=== PATIENT | female | born 1960 | race Caucasian/White ===

== ENCOUNTER 2018-01-15 06:39 | Inpatient (IN) | payer MEDICARE, MEDICAID ==
[~2018-01-15 06:39] MED LIST: Bupivacaine 0.5%/EPINEPHrine 1:200,000 50 ML MDV ONE; Meropenem 500 MG SDV ONE
[2018-01-15] MEDS ORDERED: Celecoxib 200 MG Cap PO ONE (07:00)
[2018-01-15] MEDS ORDERED: Gabapentin 300 MG Cap PO ONE (07:00)
[2018-01-15] MEDS ORDERED: Acetaminophen 500 MG Tab PO ONE (07:00)
[2018-01-15] MEDS ORDERED: Scopolamine 1.5 MG Transdermal Patch TRDERM SCH (07:00)
[2018-01-15] MEDS ORDERED: Glycopyrrolate 0.2 MG/ML 5 ML MDV ONE (07:26)
[2018-01-15] MEDS ORDERED: fentaNYL 250 MCG/5 ML SDV ONE (07:26)
[2018-01-15] MEDS ORDERED: Succinylcholine 200 MG/10 ML MDV ONE (07:26)
[2018-01-15] MEDS ORDERED: Ondansetron 4 MG/2 ML SDV ONE (07:26)
[2018-01-15] MEDS ORDERED: Neostigmine Methylsulfate 1 MG/ML 5 ML Syringe ONE (07:26)
[2018-01-15] MEDS ORDERED: Dexamethasone 4 MG/ML SDV ONE (07:26)
[2018-01-15] MEDS ORDERED: Propofol 200 MG/20 ML SDV ONE (07:26)
[2018-01-15] MEDS ORDERED: Rocuronium 50 MG/5 ML Vial ONE ×2 (07:26→11:09)
[2018-01-15] MEDS ORDERED: Dextrose 5%-Lactated Ringers 1,000 ML IV SCH (07:30)
[2018-01-15] MEDS ORDERED: Albuterol/Ipratropium 3.0-0.5 MG/3 ML Neb Soln NEB ONE (08:00)
[2018-01-15] MEDS ORDERED: Lidocaine 0.4%/D5W 2 GM/500 ML BAG IV SCH (08:30)
[2018-01-15] MEDS ORDERED: Lidocaine 2% 100 MG/5 ML Syringe IVPUSH ONE (08:30)
[2018-01-15] MEDS ORDERED: Ketamine 500 MG/5 ML MDV IV SCH (08:30)
[2018-01-15] MEDS ORDERED: cefOXitin 2 GM in Sodium Chloride 0.9% 50 ML IV ONE (08:30)
[2018-01-15] MEDS ORDERED: Ropivacaine 58 ML, Dexamethasone 8 MG, EPINEPHrine 0.4 MG, Sodium Chloride 0.9% 19.6 ML NERVRT SCH ×4 (09:00)
[2018-01-15] MEDS ORDERED: Naloxone 0.4 MG/ML SDV IVPUSH PRN (09:01)
[2018-01-15] MEDS ORDERED: Naloxone 0.4 MG/ML SDV IV PRN (09:03)
[2018-01-15] MEDS: HYDROmorphone/Normal Saline 15 MG/30 ML PCA IV PRN (09:43)
[2018-01-15] MEDS ORDERED: Hydrocortisone Sodium Succinate 100 MG/2 ML SDV ONE (10:06)
[2018-01-15] MEDS ORDERED: Lactated Ringers 1,000 ML ONE (10:07)
[2018-01-15] MEDS ORDERED: Linezolid 200 MG/100 ML Bag IRR ONE (10:50)
--- NOTE | 2018-01-15 12:45 | CR ---
CHEST: Portable CLINICAL HISTORY:Catheter placement COMPARISON:None FINDINGS: Patient has a left subclavian catheter. Tip is in the superior vena cava. Pulmonary vascul ar is mildly cephalized. There is no infiltrate or edema IMPRESSION: Left subclavian catheter appears in good position Mild pulmonary vascular congestion may represent pulmonary venous hypertension
[2018-01-15] MEDS: Dextrose 5%-Lactated Ringers 1,000 ML IV SCH ×2 (13:58→21:27)
[2018-01-15] MEDS: Albuterol/Ipratropium 3.0-0.5 MG/3 ML Neb Soln INH SCH ×2 (14:59→21:20)
[2018-01-15] MEDS: cefOXitin 2 GM in Sodium Chloride 0.9% 50 ML IV SCH ×2 (16:57→21:20)
[2018-01-15] MEDS: Pantoprazole 40 MG Vial IV SCH (17:04)
[2018-01-15] MEDS: methylPREDNISolone Sodium Succinate 125 MG/2 ML SDV IVPUSH SCH (17:05)
[2018-01-15] MEDS ORDERED: Meperidine PF 100 MG/ML Syringe IM ONE (17:47)
[2018-01-15] MEDS ORDERED: hydrOXYzine HCl 100 MG/2 ML SDV IM ONE (17:48)
[2018-01-15] MEDS ORDERED: hydrOXYzine HCl 100 MG/2 ML SDV IM PRN (17:51)
[2018-01-15] MEDS: Budesonide 0.5 MG/2 ML Neb Susp INH SCH (20:39)
[2018-01-15] MEDS: Arformoterol 15 MCG/2 ML Neb Soln INH PRN (20:39)
[2018-01-15] MEDS ORDERED: Montelukast 10 MG Tab PO SCH (21:00)
[2018-01-15] MEDS: traZODone 50 MG Tab PO SCH (21:21)
[2018-01-15] MEDS: ClonazePAM 1 MG Tab PO SCH (21:53)
[2018-01-16] MEDS: Dextrose 5%-Lactated Ringers 1,000 ML IV SCH ×3 (02:41→17:48)
[2018-01-16] MEDS: methylPREDNISolone Sodium Succinate 125 MG/2 ML SDV IVPUSH SCH (05:09)
[2018-01-16] MEDS: cefOXitin 2 GM in Sodium Chloride 0.9% 50 ML IV SCH (05:09)
[2018-01-16] MEDS: Azithromycin 250 MG Tab PO SCH (05:10)
[2018-01-16] MEDS: Budesonide 0.5 MG/2 ML Neb Susp INH SCH ×2 (07:25→21:00)
[2018-01-16] MEDS: Albuterol/Ipratropium 3.0-0.5 MG/3 ML Neb Soln INH SCH ×4 (07:26→20:59)
[2018-01-16] MEDS: Fluticasone Propionate Nasal Spray 16 GM Bottle NASBOTH SCH (08:33)
[2018-01-16] MEDS: acetaZOLAMIDE 250 MG Tab PO SCH (08:33)
[2018-01-16] MEDS: Loratadine 10 MG Tab PO SCH (08:34)
[2018-01-16] MEDS: Furosemide 40 MG Tab PO SCH (08:34)
[2018-01-16] MEDS: buPROPion 150 MG Tab.ER PO SCH (08:34)
[2018-01-16] MEDS: Theophylline 100 MG Cap.ER PO SCH (08:34)
[2018-01-16] MEDS: ClonazePAM 1 MG Tab PO SCH ×2 (08:42→21:06)
[2018-01-16] MEDS ORDERED: Montelukast 10 MG Tab PO SCH (09:00)
[2018-01-16] MEDS: Montelukast 10 MG Tab PO SCH (09:03)
[2018-01-16] MEDS: Bisacodyl 5 MG Tab PO SCH ×2 (09:03→21:01)
[2018-01-16] MEDS: Docusate Sodium 100 MG Cap PO SCH ×2 (09:03→21:02)
[2018-01-16] MEDS: DALIRESP 500 MG PO SCH (10:46)
[2018-01-16] MEDS: HYDROmorphone/Normal Saline 15 MG/30 ML PCA IV PRN (12:39)
[2018-01-16] MEDS: Pantoprazole 40 MG Vial IV SCH (16:27)
[2018-01-16] MEDS: traZODone 50 MG Tab PO SCH (21:00)
[2018-01-16] MEDS: diphenhydrAMINE 25 MG Cap PO PRN (21:42)
[2018-01-17] MEDS: Dextrose 5%-Lactated Ringers 1,000 ML IV SCH (00:42)
[2018-01-17] MEDS: Azithromycin 250 MG Tab PO SCH (05:33)
[2018-01-17] MEDS: Albuterol/Ipratropium 3.0-0.5 MG/3 ML Neb Soln INH SCH ×4 (07:07→20:29)
[2018-01-17] MEDS: Budesonide 0.5 MG/2 ML Neb Susp INH SCH ×2 (07:07→20:29)
[2018-01-17] MEDS ORDERED: predniSONE 1 MG Tab PO ONE (08:00)
[2018-01-17] MEDS ORDERED: Dextrose 5%-Lactated Ringers 1,000 ML IV SCH (08:15)
[2018-01-17] MEDS: Fluticasone Propionate Nasal Spray 16 GM Bottle NASBOTH SCH (08:25)
[2018-01-17] MEDS: Bisacodyl 5 MG Tab PO SCH ×3 (08:25→20:34)
[2018-01-17] MEDS: Montelukast 10 MG Tab PO SCH (08:26)
[2018-01-17] MEDS: acetaZOLAMIDE 250 MG Tab PO SCH (08:26)
[2018-01-17] MEDS: Theophylline 100 MG Cap.ER PO SCH (08:26)
[2018-01-17] MEDS: Docusate Sodium 100 MG Cap PO SCH ×2 (08:26→20:33)
[2018-01-17] MEDS: buPROPion 150 MG Tab.ER PO SCH (08:26)
[2018-01-17] MEDS: Loratadine 10 MG Tab PO SCH (08:26)
[2018-01-17] MEDS: Furosemide 40 MG Tab PO SCH (08:27)
[2018-01-17] MEDS: Sodium Chloride 0.9% 10 ML Syringe FLUSH SCH ×2 (08:44→20:36)
[2018-01-17] MEDS ORDERED: Azithromycin 250 MG Tab PO SCH (09:00)
[2018-01-17] MEDS: ClonazePAM 1 MG Tab PO SCH ×2 (09:33→20:34)
[2018-01-17] MEDS: Acetaminophen/oxyCODONE 325-5 MG Tab PO PRN ×4 (09:33→20:34)
[2018-01-17] MEDS: DALIRESP 500 MG PO SCH (09:35)
[2018-01-17] MEDS: Pantoprazole 40 MG Delayed-Release Granules 1 Packet PO SCH (11:28)
--- NOTE | 2018-01-17 15:52 | PN ---
DATE OF SERVICE: 01/16/2018 The patient has been afebrile with stable vital signs. Her respiratory status is surprisingly quite good. We will continue with the CPAP when she is asleep, and the 4 L nasal cannula when awake. With that, she is having O2 sats in the mid 90s and looks quite comfortable. We will begin a clear liquid diet today, not pushing that, and some bowel stimulation. Back down on the IV rate. We will switch over to prednisone starting tomorrow to 4 mg and probably slipping her down to the usual 2.5 mg on Thursday. Richmond Russell MD /[id number]
[2018-01-17] MEDS: Ondansetron 4 MG/2 ML SDV IVPUSH PRN ×2 (16:07→20:33)
[2018-01-17] MEDS: traZODone 50 MG Tab PO SCH (20:34)
[2018-01-18] MEDS: Acetaminophen/oxyCODONE 325-5 MG Tab PO PRN ×4 (02:49→15:19)
[2018-01-18] MEDS: Azithromycin 250 MG Tab PO SCH (05:10)
[2018-01-18] MEDS: Budesonide 0.5 MG/2 ML Neb Susp INH SCH ×2 (07:06→21:47)
[2018-01-18] MEDS: Albuterol/Ipratropium 3.0-0.5 MG/3 ML Neb Soln INH SCH ×4 (07:06→21:47)
--- NOTE | 2018-01-18 08:23 | PN ---
DATE: 01/17/2018 The patient has been afebrile with stable vital signs. Oral intake was fair with clear liquids and go up to a step-3 diet today. Continue some ongoing bowel stimulation and maximize activity. Pulmonary status appears to be fairly good. We will get her back down to her baseline prednisone dose of 2.5 mg a day starting tomorrow and restart her standing Zithromax. Richmond Russell MD /[id number]
--- NOTE | 2018-01-18 08:35 | OR ---
DATE OF PROCEDURE: 01/15/2018 PREOPERATIVE DIAGNOSES: 1. Incarcerated incisional hernia. 2. Inadequate peripheral venous access. POSTOPERATIVE DIAGNOSES: 1. Inadequate peripheral venous access. 2. Incarcerated incisional hernia. 3. Focal areas of deserosalization of small bowel, status post lysis of adhesions. OPERATIVE PROCEDURES: 1. Insertion of left subclavian vein triple-lumen catheter (31188). 2. Exploratory laparotomy with;. a. Repair of incarcerated incisional hernia with mesh (34275, 84752). b. Repair of focal areas of deserosalization of the small bowel x2 (66415). c. Placement of Vicryl mesh to displace pelvic and abdominal brito from underlying viscera to limit recurrent adhesion formation (90312). ANESTHESIA: General. SOLID PLASTERER: Pippa Conn PA-C. INDICATIONS FOR PROCEDURE: The patient presents with increasingly symptomatic and enlarging incisional hernia, this was located in the mid-epigastrium. On CT scan, it contains transverse colon. This was associated with some degree of bowel obstruction at that level with the colon and small bowel proximal to this on serial CTs showing areas of distention consistent with a partial obstruction at that level. The plan is to proceed with an exploratory laparotomy and repair of the hernia with mesh. The patient is aware that if significant bowel resections are needed and/or closure of enterotomies that would contaminate the field, we might need to repair this hernia without mesh making her at a higher risk for recurrence. Otherwise, the potential risks of the procedure including bleeding, infection, injury to the underlying viscera, possible recurrence of the hernia over time as well as the possibility of cardiopulmonary, septic, or hemorrhagic complications leading to were discussed, and the patient wishes to proceed. One additional item in this patient is that she is a very difficult IV start and given this, the subclavian vein catheter will be placed after induction of anesthesia. She has had these in the past and additional potential risks of that including bleeding, infection, pneumohemothorax were likewise gone over, and the patient wishes to proceed. DETAILS OF PROCEDURE: The patient was taken to the operating room and after general endotracheal anesthesia was induced, bilateral midabdominal transversus abdominis plane blocks were placed using ultrasound guidance and injection of the standard solution bilaterally. A Posadas catheter was inserted, and the abdomen was then prepped and draped. A midline incision over the central abdomen excising a small amount of the overlying skin was then made and carried down through the skin and subcutaneous tissues. The tissue between the transverse colon and the skin surface was very minimal, perhaps as little as 2 or 3 mm in certain locations. The transverse colon was able to be dissected off the area of the herniation with a combination of blunt, sharp, and cautery dissections. Once the transverse colon was reduced, the patient was noted to have some very dense adhesions between the small bowel and the incision with the fascia, otherwise, had been intact just above that area. As these areas were taken down, two areas of deserosalization of small bowel were noted, but no overt enterotomy was encountered and both of these areas of deserosalization were then closed with transversely-oriented CHRISTIANO staple lines. This did not appear to significantly create any contamination of the wound. Further adhesions between the anterior abdominal wall and pelvic wall were then taken down such that there was a wide margin of abdominal wall for fixation of the mesh. Eventually, at this point, the area around the hernia was mapped out and a Ventrio ST hernia patch measuring 22 x 27 cm with an oval configuration was selected. This was then used to map out these stitches to initially suspend the mesh and 2-0 Vicryl sutures were then placed on circumference of the mesh on the polypropylene side at roughly 5 to 6 cm intervals. The mesh was then soaked in an antibiotic-containing saline solution and stab wounds were made at the appropriate locations on the abdominal wall. The upper half of the mesh was then initially placed using an endoscopic suture passer for pulling up the sutures. The patient was felt to be at high risk for significant problems with additional adhesions between the pelvic and anterior abdominal wall of the mesh and the underlying viscera. Given this, a 12-inch segment of Vicryl mesh was then placed underneath the mesh as well as extending down into the pelvis along the pelvic sidewalls, displacing the viscera from those surfaces. The remaining sutures to the mesh were then pulled through, thus fixing the mesh in a good position circumferentially. These were then tied. Then, on the under shelf of the mesh, the mesh was circumferentially fixed to the abdominal wall with titanium tacking screws as well. At that point, no further problems were noted. The midline fascia was approximated with #2 Vicryl stitch, subcutaneous tissue with 2 layers of 3-0 Vicryl stitch deep and jim for the skin. The skin puncture sites where the sutures had been pulled up were also closed with jim. The patient was taken to the recovery room in a satisfactory condition. There were no evident complications. Physician gallery assistant, Pippa Conn, played an essential role in assisting in this case, helping to position the patient, retract structures as needed, as well as suturing and cutting sutures when indicated. Her presence improved patient safety and decreased the operative time. Richmond Russell MD /[id number]
[2018-01-18] MEDS: Fluticasone Propionate Nasal Spray 16 GM Bottle NASBOTH SCH (08:36)
[2018-01-18] MEDS: Theophylline 100 MG Cap.ER PO SCH (08:37)
[2018-01-18] MEDS: acetaZOLAMIDE 250 MG Tab PO SCH (08:37)
[2018-01-18] MEDS: Docusate Sodium 100 MG Cap PO SCH ×2 (08:37→21:46)
[2018-01-18] MEDS: Loratadine 10 MG Tab PO SCH (08:37)
[2018-01-18] MEDS: Bisacodyl 5 MG Tab PO SCH ×2 (08:37→21:46)
[2018-01-18] MEDS: buPROPion 150 MG Tab.ER PO SCH (08:37)
[2018-01-18] MEDS: Furosemide 40 MG Tab PO SCH (08:37)
[2018-01-18] MEDS: DALIRESP 500 MG PO SCH (08:38)
[2018-01-18] MEDS: predniSONE 5 MG Tab PO SCH (08:38)
[2018-01-18] MEDS: Sodium Chloride 0.9% 10 ML Syringe FLUSH SCH (08:44)
[2018-01-18] MEDS: ClonazePAM 1 MG Tab PO SCH ×2 (08:44→21:47)
[2018-01-18] MEDS: Montelukast 10 MG Tab PO SCH (08:46)
[2018-01-18] MEDS: Arformoterol 15 MCG/2 ML Neb Soln INH PRN (08:47)
[2018-01-18] MEDS: Ondansetron 4 MG/2 ML SDV IVPUSH PRN (09:18)
--- NOTE | 2018-01-18 09:59 | PN ---
DATE OF SERVICE: 01/18/2018 SUBJECTIVE: Toya is postop day 3. Her pain has been controlled. She has been up ambulating. Vital signs stable. She has not had a bowel movement yet. Temperature max of 99.6. Oral intake 2440 and urine output 2600. REVIEW OF SYSTEMS: Remainder of review of systems negative for any pertinent positives and negatives. OBJECTIVE: GENERAL: Toya is a 57-year-old female. She is alert and orientated. VITAL SIGNS: TPR is 99.6, 106, 18; blood pressure 123/84; and O2 is 92% on 4 L of O2. HEENT: Negative. NECK: Supple. HEART: Regular rate and rhythm. LUNGS: Reveal decreased breath sounds bilaterally, which is normal for her. ABDOMEN: Dressings dry and intact. Abdominal binder is on. EXTREMITIES: Without peripheral edema. ASSESSMENT: 1. Insertion of left subclavian triple-lumen catheter. 2. Exploratory laparotomy with repair of incarcerated incisional hernia with mesh, repair of focal deserosalization of small bowel x2, and lysis of adhesions and placement of Vicryl mesh for an adequate peripheral vein access of incarcerated incisional hernia. Two focal areas of deserosalization of the small bowel, lysis of adhesions. Date of surgery 01/15/2018. PLAN: 1. Discontinue Tylenol to prevent too much on Tylenol while taking the Percocet for pain. 2. Prednisone 2.5 mg p.o. daily. 3. Continue bowel stimulation. Discontinue when patient is having bowel movement. Orders are already in chart. Good pulmonary toilet. We will evaluate p.r.n. or in a.m. Pippa Cnon PA-C /[id number]
[2018-01-18] MEDS: Pantoprazole 40 MG Delayed-Release Granules 1 Packet PO SCH (11:05)
[2018-01-18] MEDS ORDERED: Magnesium Citrate Solution 296 ML Bottle PO ONE (18:13)
[2018-01-18] MEDS: Acetaminophen/oxyCODONE 325-10 MG Tab PO PRN (19:22)
[2018-01-18] MEDS: traZODone 50 MG Tab PO SCH (21:47)
[2018-01-19] MEDS: Acetaminophen/oxyCODONE 325-10 MG Tab PO PRN ×3 (01:41→10:00)
[2018-01-19] MEDS: Azithromycin 250 MG Tab PO SCH (05:54)
[2018-01-19] MEDS: Albuterol/Ipratropium 3.0-0.5 MG/3 ML Neb Soln INH SCH ×4 (07:17→20:34)
[2018-01-19] MEDS: Budesonide 0.5 MG/2 ML Neb Susp INH SCH ×2 (07:18→20:34)
[2018-01-19] MEDS ORDERED: Magnesium Citrate Solution 296 ML Bottle PO ONE ×2 (09:30→16:00)
[2018-01-19] MEDS: Montelukast 10 MG Tab PO SCH (09:49)
[2018-01-19] MEDS: Fluticasone Propionate Nasal Spray 16 GM Bottle NASBOTH SCH (09:49)
[2018-01-19] MEDS: Bisacodyl 5 MG Tab PO SCH ×2 (09:49→20:34)
[2018-01-19] MEDS: buPROPion 150 MG Tab.ER PO SCH (09:49)
[2018-01-19] MEDS: Furosemide 40 MG Tab PO SCH (09:49)
[2018-01-19] MEDS: Theophylline 100 MG Cap.ER PO SCH (09:49)
[2018-01-19] MEDS: Docusate Sodium 100 MG Cap PO SCH ×2 (09:49→20:33)
[2018-01-19] MEDS: predniSONE 5 MG Tab PO SCH (09:50)
[2018-01-19] MEDS: Loratadine 10 MG Tab PO SCH (09:50)
[2018-01-19] MEDS: acetaZOLAMIDE 250 MG Tab PO SCH (09:50)
[2018-01-19] MEDS: DALIRESP 500 MG PO SCH (09:51)
[2018-01-19] MEDS: Sodium Chloride 0.9% 10 ML Syringe FLUSH SCH (09:51)
[2018-01-19] MEDS: ClonazePAM 1 MG Tab PO SCH ×2 (10:00→20:33)
[2018-01-19] MEDS: Pantoprazole 40 MG Delayed-Release Granules 1 Packet PO SCH (11:48)
[2018-01-19] MEDS: Roflumilast 500 MCG Tab PO SCH (11:48)
[2018-01-19] MEDS ORDERED: Furosemide 40 MG/4 ML VIAL IVPUSH ONE (16:20)
--- NOTE | 2018-01-19 16:24 | PCM.CONS ---
H&P History of Present Illness - General Date of Service: 01/19/18 Admit Problem/Dx: Admission Diagnosis/Problem Admission Diagnosis/Problem Hernia Source of Information: Patient, RN History Limitations: Reports: Altered Mental Status (lethargic) - History of Present Illness Initial Comments - Free Text/Narative: Toya was admitted 4 days ago for surgical repair of incarcerated hernia. I was asked to see her today regarding lethargy and worsening hypoxia by Dr. Russell. Nursing reports that she has been somnolent today and her oxygen saturations have slowly declined despite her usual dose of supplemental oxygen. They have also noticed some swelling involving face, arms and legs. Her main concern at this time is that she has worsening abdominal pain. She reports sharp diffuse abdominal pain that is worse with coughing and movement. Pain medications earlier in the day did help some. The pain is severe with coughing episodes. She does feel short of breath and that her breathing is labored. She does not report any chest pain at this time. She is lethargic during our discussion. She does not report any nausea. She has been using her home BiPAP throughout the afternoon. She is on home oxygen and uses between 3-4 L/m. She has been on 4 L of oxygen per minute during the hospital stay. Abdomen Pain Score (Numeric/FACES): 7 - Related Data Allergies/Adverse Reactions: Allergies Allergy/AdvReac Type Severity Reaction Status Date / Time morphine Allergy Rash Verified 01/15/18 07:47 Home Medications: Home Meds Albuterol/Ipratropium [DuoNeb 3.0-0.5 MG/3 ML] 1 inh INH QID PRN 01/12/18 [ History] Budesonide [Pulmicort] 0.5 mg IH BID 01/12/18 [History] Ergocalciferol (Vitamin D2) [Vitamin D2] 2,000 unit PO DAILY 01/12/18 [History] Fluticasone Propionate [Flonase] 2 inh INH DAILY 01/12/18 [History] Furosemide 40 mg PO DAILY 01/12/18 [History] Loratadine [Claritin] 10 mg PO DAILY 01/12/18 [History] Montelukast [Singulair] 10 mg PO DAILY 01/12/18 [History] Multivitamin with Minerals [Multiple Vitamin] 1 tab PO DAILY 01/12/18 [History] Roflumilast [Daliresp] 500 mcg PO DAILY 01/12/18 [History] Theophylline Anhydrous [Timothy-24] 200 mg PO DAILY 01/12/18 [History] buPROPion HCl [Wellbutrin SR] 150 mg PO DAILY 01/12/18 [History] diphenhydrAMINE [Benadryl] 50 mg PO BEDTIME 01/12/18 [History] traZODone HCl [Trazodone HCl] 300 mg PO BEDTIME 01/12/18 [History] Azithromycin [Zithromax] 250 mg PO DAILY 01/15/18 [History] Codeine/guaiFENesin [Robitussin AC] 1 tsp PO Q4H PRN 01/15/18 [History] Cyanocobalamin (Vitamin B12) [Vitamin B12] 1,000 mcg IM Q30D 01/15/18 [History] Fluconazole [Diflucan] 150 mg PO Q7D 01/15/18 [History] Folic Acid 1 mg PO DAILY 01/15/18 [History] Umeclidinium Inhalation Powder 1 puff INH DAILY 01/15/18 [History] acetaZOLAMIDE [Acetazolamide] 250 mg PO DAILY 01/15/18 [History] clonazePAM [Klonopin] 1 mg PO BID 01/15/18 [History] predniSONE [Prednisone] 2.5 mg PO DAILY 01/15/18 [History] Past Medical History HEENT History: Reports: Cataract, Other (See Below) Other HEENT History: wears glasses Respiratory History: Reports: Asthma, Bronchitis, Recurrent, COPD, Pneumonia, Recurrent, Sleep Apnea, Other (See Below) Other Respiratory History: home O2 at 4L Gastrointestinal History: Reports: Chronic Diarrhea, Colon Polyp, GERD Genitourinary History: Reports: UTI, Recurrent JAVA 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: Musculoskeletal History: Reports: Osteoarthritis Psychiatric History: Reports: Addiction, Anxiety, Depression, PTSD Endocrine/Metabolic History: Reports: Obesity/BMI 30+ Dermatologic History: Reports: Cellulitis - Infectious Disease History Infectious Disease History: Reports: Chicken Pox, MRSA - Past Surgical History HEENT Surgical History: Reports: Oral Surgery GI Surgical History: Reports: Appendectomy, Bariatric Procedure, Cholecystectomy , Colonoscopy, EGD, Hernia, Abdominal, Other (See Below) Other GI Surgeries/Procedures: spleenectomy Female Surgical History: Reports: Hysterectomy Musculoskeletal Surgical History: Reports: Hip Replacement, Knee Replacement Social & Family History - Family History Cardiac: Denies: CAD - Tobacco Use Smoking Status *Q: Former Smoker Years of Tobacco use: 40 Used Tobacco, but Quit: Yes Month/Year Tobacco Last Used: 2007 Second Hand Smoke Exposure: No - Caffeine Use Caffeine Use: Reports: Coffee - Alcohol Use Alcohol Use History: Yes Alcohol Use in Last Twelve Months: No - Recreational Drug Use Recreational Drug Use: Yes Drug Use in Last 12 Months: No Recreational Drug Type: Reports: Cocaine, Marijuana/Hashish, Methamphetamine Other Recreational Drug Type: nothing in last 12 years H&P Review of Systems - Review of Systems: Review Of Systems: See Below Free Text/Narrative: A complete 12 point review of systems was obtained. Pertinent positives and negatives are noted in the history of present illness. All other systems were reviewed and were negative except as noted. Exam - Exam Exam: See Below - Vital Signs Vital Signs: Last Vital Signs Temp 37.9 C 01/19/18 15:31 Pulse 125 H 01/19/18 15:31 Resp 18 01/19/18 14:06 BP 137/87 01/19/18 15:31 Pulse Ox 91 L 01/19/18 15:31 Weight: 113.58 kg - Exam Quality Assessment: Supplemental Oxygen, Central Line/PICC General: Alert, Cooperative, Mild Distress, Lethargic HEENT: Mucosa Moist & [place]. No: Scleral Icterus Neck: Supple, JVD. No: Lymphadenopathy, Thyromegaly Lungs: Crackles (throughout, more pronounced in the bases). No: Normal Respiratory Effort (increased work of breathing), Wheezing Cardiovascular: Regular Rhythm, Tachycardia. No: Systolic Murmur GI/Abdominal Exam: Soft, Distended. No: Abnormal Bowel Sounds (hypoactive) Extremities: Pedal Edema. No: Increased Warmth Skin: Warm, Dry Neuro Extensive - Mental Status: Alert, Nl Response to Commands Neuro Extensive - Motor, Sensory, Reflexes: CN II-XII Intact. No: Dysarthria, Abnormal Motor Psychiatric: Alert. No: Anxious - Patient Data Result Diagrams: 01/19/18 16:19 Imaging Impressions Last 24 hrs: chest x-ray - images personally reviewed - there is pulmonary vascular congestion but no impressive pulmonary edema. Heart size is normal. No obvious infiltrate. There is some atelectasis in the lower lungs bilaterally. Consult PN Assessment/Plan POD#: 4 Problem List Initiated/Reviewed/Updated: Yes My Orders Last 24 Hours: My Active Orders 01/19/18 16:19 BASIC METABOLIC PANEL,BMP [CHEM] Urgent BLOOD GAS ARTERIAL [BG] Urgent 01/19/18 16:20 Chest 1V Frontal [CR] Urgent 01/20/18 05:00 CBC W/O DIFF,HEMOGRAM [HEME] Timed (1) Plan: ASSESSMENT AND PLAN - Acute on chronic respiratory failure with hypoxia and hypercapnia - PCO2 is nearly 73 despite being on her home BiPAP throughout the afternoon. She does have a history of cor pulmonale and this seems to be the etiology for her worsening respiratory status. I don't see any evidence for infection at this time. He dose of furosemide has been ordered even prior to my evaluation. She does not have any chest pain at this time to suggest acute coronary syndrome. -Transfer to the intensive care unit for increasing noninvasive ventilatory support -f/u urine output after diuresis, reassess need for additional dosing -Pulse oximetry Severe oxygen dependent COPD - no wheezing at this time and I doubt that she has an acute exacerbation. Seems to be mostly a fluid issue. -Continue home management including nebulizers Incarcerated ventral hernia, status post surgical repair - pain control suboptimal this afternoon. She did have a bowel movement this afternoon. -Postoperative cares per surgical team Patient will be transferred to the intensive care unit to initiate the hospital BiPAP machine with increased pressures needed beyond her home machines settings. Gonzalo Carrillo M.D. Requesting Provider: Dr Russell Date Consult Requested: 01/19/18 Reason for Consult: lethargy, increasing hypoxia Patient History Reviewed: Yes Admission H&P Reviewed: Yes Notified Requestor: Yes Time Spent (in minutes): 60
[2018-01-19] MEDS: traZODone 50 MG Tab PO SCH (20:34)
[2018-01-20] MEDS: Ondansetron 4 MG/2 ML SDV IVPUSH PRN (02:06)
[2018-01-20] MEDS: Acetaminophen/oxyCODONE 325-10 MG Tab PO PRN ×3 (02:06→19:35)
[2018-01-20] MEDS: Azithromycin 250 MG Tab PO SCH (05:35)
[2018-01-20] MEDS ORDERED: Furosemide 40 MG/4 ML VIAL IVPUSH ONE (06:14)
[2018-01-20] MEDS: Albuterol/Ipratropium 3.0-0.5 MG/3 ML Neb Soln INH SCH ×4 (07:54→21:11)
[2018-01-20] MEDS: Budesonide 0.5 MG/2 ML Neb Susp INH SCH ×2 (07:54→21:11)
[2018-01-20] MEDS: buPROPion 150 MG Tab.ER PO SCH (08:37)
[2018-01-20] MEDS: Theophylline 100 MG Cap.ER PO SCH (08:37)
--- NOTE | 2018-01-20 08:37 | PCM.CONSN ---
- General Info Date of Service: 01/20/18 Functional Status: Reports: Pain Controlled - Review of Systems General: Reports: Weakness. Denies: Fever Pulmonary: Reports: Shortness of Breath Neurological: Reports: Confusion Systems Review Comment:: there were no acute events overnight following transfer to the intensive care unit. Repeat ABGs about 45 minutes after initiation of noninvasive ventilation with increased pressures revealed a decrease in her PCO2. The patient was able to tolerate her noninvasive ventilation overnight. This morning she reports that she feels better and is breathing easier. However, her PCO2 has risen back to greater than 70. Intake and output were balance yesterday. She has not had any fevers. Her white blood cell count is normal. She reports her abdominal pain is still moderately severe though she looks quite comfortable. She does have a loose cough. She did have bowel movement yesterday. - Patient Data Vitals - Most Recent: Last Vital Signs Temp 37.4 C 01/20/18 04:57 Pulse 90 01/20/18 07:54 Resp 20 01/20/18 04:57 BP 118/68 01/20/18 06:28 Pulse Ox 92 L 01/20/18 07:54 Weight - Most Recent: 123.74 kg I&O - Last 24 Hours: Intake & Output 01/19/18 01/20/18 01/20/18 22:59 06:59 14:59 Intake Total 1000 Output Total 525 600 Balance -525 1000 -600 Lab Results Last 24 Hours: Laboratory Results - last 24 hr 01/19/18 01/19/18 01/19/18 Range/Units 16:19 16:40 19:00 WBC (4.5-11.0) K/uL RBC (3.30-5.50) M/uL Hgb (12.0-15.0) g/dL Hct (36.0-48.0) % MCV (80-98) fL MCH (27-31) pg MCHC (32-36) % Plt Count (150-400) K/uL Puncture Site Left radial Lt radial ABG pH 7.326 L 7.375 (7.350-7.450) ABG pCO2 72.7 H* 64.6 H (35.0-42.0) mmHg ABG pO2 66.0 L 50.9 L (75.0-100.0) mmHg ABG HCO3 36.9 H 36.9 H (22.0-26.0) mmol/L ABG Total CO2 33.7 H 33.7 H (21.0-25.0) mmol/L ABG O2 Saturation 90.2 L 83.2 L (95.0-98.0) % ABG O2 Content 15.9 13.7 L (15.0-23.0) %vol ABG Base Excess 8.6 9.9 mm/L ABG Hemoglobin 12.9 12.1 (12.0-16.0) g/dL ABG Oxyhemoglobin 87.8 80.7 % ABG Carboxyhemoglobin 0.4 0.7 (0.0-1.6) % ABG Methemoglobin 2.3 2.3 % Ephraim Test Passed Passed O2 Delivery Device Nasal cannula Bipap Oxygen Flow Rate L Sodium 140 (140-148) mmol/L Potassium 4.1 (3.6-5.2) mmol/L Chloride 100 (100-108) mmol/L Carbon Dioxide 38 H (21-32) mmol/L Anion Gap 6.1 (5.0-14.0) mmol/L BUN 15 (7-18) mg/dL Creatinine 0.7 (0.6-1.0) mg/dL Est Cr Clr Drug Dosing 82.46 mL/min Estimated GFR (MDRD) > 60 (>60) Glucose 144 H (74-106) mg/dL Calcium 8.8 (8.5-10.1) mg/dL 18 01/20/18 Range/Units 05:30 05:35 WBC 5.5 (4.5-11.0) K/uL RBC 3.38 (3.30-5.50) M/uL Hgb 10.6 L (12.0-15.0) g/dL Hct 36.0 (36.0-48.0) % MCV 107 H (80-98) fL MCH 31 (27-31) pg MCHC 29 L (32-36) % Plt Count 294 (150-400) K/uL Puncture Site Left radial ABG pH 7.353 (7.350-7.450) ABG pCO2 72.4 H* (35.0-42.0) mmHg ABG pO2 43.5 L* (75.0-100.0) mmHg ABG HCO3 39.2 H (22.0-26.0) mmol/L ABG Total CO2 36.5 H (21.0-25.0) mmol/L ABG O2 Saturation 75.3 L (95.0-98.0) % ABG O2 Content 11.3 L (15.0-23.0) %vol ABG Base Excess 11.6 mm/L ABG Hemoglobin 11.0 L (12.0-16.0) g/dL ABG Oxyhemoglobin 73.3 % ABG Carboxyhemoglobin 0.4 (0.0-1.6) % ABG Methemoglobin 2.2 % Ephraim Test Passed O2 Delivery Device Bipap Oxygen Flow Rate L Sodium (140-148) mmol/L Potassium (3.6-5.2) mmol/L Chloride (100-108) mmol/L Carbon Dioxide (21-32) mmol/L Anion Gap (5.0-14.0) mmol/L BUN (7-18) mg/dL Creatinine (0.6-1.0) mg/dL Est Cr Clr Drug Dosing mL/min Estimated GFR (MDRD) (>60) Glucose (74-106) mg/dL Calcium (8.5-10.1) mg/dL Med Orders - Current: Current Medications Acetazolamide (Diamox) 250 mg PO DAILY [facility] Last Admin: 01/19/18 09:50 Dose: 250 mg Albuterol/Ipratropium (Duoneb 3.0-0.5 Mg/3 Ml) 3 ml INH QIDRT [facility] Last Admin: 01/20/18 07:54 Dose: 3 ml Albuterol/Ipratropium (Duoneb 3.0-0.5 Mg/3 Ml) 3 ml INH ASDIRECTED PRN PRN Reason: BREATHING Arformoterol Tartrate (Brovana) 15 mcg INH BID PRN PRN Reason: BREATHING Last Admin: 01/18/18 08:47 Dose: 15 mcg Azithromycin (Zithromax) 250 mg PO DAILY@0600 [facility] Last Admin: 01/20/18 05:35 Dose: 250 mg Budesonide (Pulmicort) 0.5 mg INH BIDRT [facility] Last Admin: 01/20/18 07:54 Dose: 0.5 mg Bupropion HCl (Wellbutrin Xl) 150 mg PO DAILY [facility] Last Admin: 01/19/18 09:49 Dose: 150 mg Clonazepam (Klonopin) 1 mg PO BID [facility] Last Admin: 01/19/18 20:33 Dose: 1 mg Diphenhydramine HCl (Benadryl) 50 mg PO Q4H PRN PRN Reason: Other Last Admin: 01/16/18 21:42 Dose: 50 mg Docusate Sodium (Colace) 100 mg PO BID [facility] Last Admin: 01/19/18 20:33 Dose: 100 mg Fluticasone Propionate (Flonase) 0 gm NASBOTH DAILY [facility] Last Admin: 01/19/18 09:49 Dose: 1 spray Heparin Sodium (Porcine) (Heparin Lock Flush 100 Units/Ml) 500 units FLUSH ASDIRECTED PRN PRN Reason: fisher trot line Last Admin: 01/19/18 16:32 Dose: 500 units Hydroxyzine HCl (Vistaril) 100 mg IM Q4H PRN PRN Reason: Pain Loratadine (Claritin) 10 mg PO DAILY [facility] Last Admin: 01/19/18 09:50 Dose: 10 mg Methylprednisolone Sodium Succinate (Solu-Medrol) 62.5 mg IVPUSH Q8H [facility] Montelukast Sodium (Singulair) 10 mg PO DAILY [facility] Last Admin: 01/19/18 09:49 Dose: 10 mg Naloxone HCl (Narcan) 0.1 mg IV ASDIRECTED PRN PRN Reason: decreased respiratory rate Ondansetron HCl (Zofran) 4 mg IVPUSH Q4H PRN PRN Reason: NAUSEA Last Admin: 01/20/18 02:06 Dose: 4 mg Oxycodone/Acetaminophen (Percocet 325-10 Mg) 1 - 2 tab PO Q4H PRN PRN Reason: Pain Last Admin: 01/20/18 02:06 Dose: 2 tab Pantoprazole Sodium (Protonix Granules) 40 mg PO Q24H [facility] Last Admin: 01/19/18 11:48 Dose: 40 mg Roflumilast (Daliresp) 500 mcg PO DAILY [facility] Last Admin: 01/19/18 11:48 Dose: 500 mcg Sodium Chloride (Saline Flush) 10 ml FLUSH DAILY [facility] Last Admin: 01/19/18 09:51 Dose: 10 ml Theophylline (Timothy-24) 200 mg PO DAILY [facility] Last Admin: 01/19/18 09:49 Dose: 200 mg Trazodone HCl (Trazodone) 300 mg PO BEDTIME [facility] Last Admin: 01/19/18 20:34 Dose: 300 mg Discontinued Medications Acetaminophen (Tylenol Extra Strength) 1,000 mg PO ONETIME ONE Stop: 01/15/18 07:01 Last Admin: 01/15/18 07:21 Dose: 1,000 mg Albuterol/Ipratropium (Duoneb 3.0-0.5 Mg/3 Ml) 3 ml NEB ONETIME ONE Stop: 01/15/18 08:01 Last Admin: 01/15/18 08:12 Dose: 3 ml Azithromycin (Zithromax) 250 mg PO DAILY [facility] Last Admin: 01/17/18 08:25 Dose: 250 mg Bisacodyl (Dulcolax) 10 mg PO BID [facility] Last Admin: 01/17/18 08:25 Dose: 10 mg Bisacodyl (Dulcolax) 10 mg PO BID [facility] Last Admin: 01/19/18 20:34 Dose: 10 mg Bupivacaine HCl/Epinephrine Bitart (Marcaine 0.5%/Epinephrine 1:200,000) Confirm Administered Dose 50 ml .ROUTE .STK-MED ONE Stop: 01/15/18 06:40 Celecoxib (Celebrex) 200 mg PO ONETIME ONE Stop: 01/15/18 07:01 Last Admin: 01/15/18 07:21 Dose: 200 mg Ropivacaine 58 ml/Dexamethasone 8 mg/Epinephrine HCl 0.4 mg/ Sodium Chloride 19.6 ml 0 ml NERVRT ASDIRECTED [facility] Last Admin: 01/15/18 10:15 Dose: 80 syringe Dexamethasone (Dexamethasone) Confirm Administered Dose 4 mg .ROUTE .STK-MED ONE Stop: 01/15/18 07:27 Fentanyl (Sublimaze) Confirm Administered Dose 250 mcg .ROUTE .STK-MED ONE Stop: 01/15/18 07:27 Furosemide (Lasix) 40 mg PO DAILY [facility] Last Admin: 01/19/18 09:49 Dose: 40 mg Furosemide (Lasix) 40 mg IVPUSH ONETIME ONE Stop: 01/19/18 16:21 Last Admin: 01/19/18 16:28 Dose: 40 mg Furosemide (Lasix) 40 mg IVPUSH ONETIME ONE Stop: 01/20/18 06:15 Last Admin: 01/20/18 06:28 Dose: 40 mg Gabapentin (Neurontin) 300 mg PO ONETIME ONE Stop: 01/15/18 07:01 Last Admin: 01/15/18 07:21 Dose: 300 mg Glycopyrrolate (Robinul) Confirm Administered Dose 1 mg .ROUTE .STK-MED ONE Stop: 01/15/18 07:27 Heparin Sodium (Porcine) (Heparin Lock Flush 100 Units/Ml) Confirm Administered Dose 500 units .ROUTE .STK-MED ONE Stop: 01/15/18 09:23 Heparin Sodium (Porcine) (Heparin Lock Flush 100 Units/Ml) Confirm Administered Dose 500 units .ROUTE .STK-MED ONE Stop: 01/17/18 08:43 Last Admin: 01/17/18 08:45 Dose: 500 units Hydrocortisone Sodium Succinate (Solu-Cortef) Confirm Administered Dose 100 mg .ROUTE .STK-MED ONE Stop: 01/15/18 10:07 Hydromorphone HCl (Dilaudid Bench Examiner 15 Mg In Ns 30 Ml) 0 mg IV ASDIRECTED PRN; Protocol PRN Reason: Pain Last Admin: 01/16/18 12:39 Dose: 15 mg Hydroxyzine HCl (Vistaril) 100 mg IM ONETIME ONE Stop: 01/15/18 17:49 Last Admin: 01/15/18 18:02 Dose: 100 mg Cefoxitin Sodium 2 gm/ Sodium (Chloride) 50 mls @ 100 mls/hr IV ONETIME ONE Stop: 01/15/18 08:59 Last Admin: 01/15/18 09:42 Dose: 100 mls/hr Dextrose/Lactated Ringer's (Dextrose 5%-Lactated Ringers) 1,000 mls @ 100 mls/ hr IV ASDIRECTED [facility] Last Admin: 01/15/18 08:46 Dose: 100 mls/hr Ketamine HCl 100 mg/ Sodium (Chloride) 100 mls @ 17.4 mls/hr IV ASDIRECTED [facility] Lidocaine HCl/Dextrose (Lidocaine 2 Gm/D5w 500 Ml) 2 gm in 500 mls @ 30 mls/hr IV .[id number] [facility] Stop: 01/16/18 12:00 Last Admin: 01/15/18 13:19 Dose: 2 mg/min, 30 mls/hr Linezolid (Zyvox) Confirm Administered Dose 300 mls @ as directed .ROUTE .STK- MED ONE Stop: 01/15/18 08:33 Lactated Ringer's (Ringers, Lactated) Confirm Administered Dose 1,000 mls @ as directed .ROUTE .STK-MED ONE Stop: 01/15/18 10:08 Dextrose/Lactated Ringer's (Dextrose 5%-Lactated Ringers) 1,000 mls @ 150 mls/ hr IV ASDIRECTED [facility]TY[facility] Last Admin: 01/17/18 00:42 Dose: 150 mls/hr Cefoxitin Sodium 2 gm/ Sodium (Chloride) 50 mls @ 100 mls/hr IV Q6H [facility] Stop: 01/16/18 04:29 Last Admin: 01/16/18 05:09 Dose: 100 mls/hr Dextrose/Lactated Ringer's (Dextrose 5%-Lactated Ringers) 1,000 mls @ 25 mls/ hr IV ASDIRECTED [facility] Ketamine HCl (Ketalar) 29 mg IV ASDIRECTED [facility] Lidocaine HCl (Xylocaine 2%) 120 mg IVPUSH ONETIME ONE Stop: 01/15/18 08:31 Last Admin: 01/15/18 13:46 Dose: Not Given Linezolid (Zyvox) 200 mg IRR .STK-MED ONE Stop: 01/15/18 10:51 Last Admin: 01/15/18 10:50 Dose: 200 mg Magnesium Citrate (Citrate Of Magnesia) 296 ml PO ONETIME ONE Stop: 01/18/18 18:14 Last Admin: 01/18/18 18:38 Dose: 296 ml Magnesium Citrate (Citrate Of Magnesia) 296 ml PO ONETIME ONE Stop: 01/19/18 09:31 Last Admin: 01/19/18 09:50 Dose: 296 ml Magnesium Citrate (Citrate Of Magnesia) 296 ml PO ONETIME ONE Stop: 01/19/18 16:01 Last Admin: 01/19/18 16:48 Dose: 296 ml Meperidine HCl (Demerol) 100 mg IM ONETIME ONE Stop: 01/15/18 17:48 Last Admin: 01/15/18 18:02 Dose: 100 mg Meropenem (Merrem) Confirm Administered Dose 500 mg .ROUTE .STK-MED ONE Stop: 01/15/18 06:40 Last Admin: 01/15/18 10:50 Dose: 500 mg Methylprednisolone Sodium Succinate (Solu-Medrol) 60 mg IVPUSH Q12H [facility] Stop: 01/16/18 06:01 Last Admin: 01/16/18 05:09 Dose: 60 mg Montelukast Sodium (Singulair) 10 mg PO BEDTIME [facility] Last Admin: 01/15/18 21:53 Dose: 10 mg Montelukast Sodium (Singulair) 10 mg PO DAILY [facility] Neostigmine Methylsulfate (Neostigmine) Confirm Administered Dose 5 mg .ROUTE .STK-MED ONE Stop: 01/15/18 07:27 Daliresp 500mg *Pom* (*Nf) 1 each PO DAILY [facility] Last Admin: 01/19/18 09:51 Dose: Not Given Ondansetron HCl (Zofran) Confirm Administered Dose 4 mg .ROUTE .STK-MED ONE Stop: 01/15/18 07:27 Oxycodone/Acetaminophen (Percocet 325-5 Mg) 1 - 2 tab PO Q4H PRN PRN Reason: Pain Last Admin: 01/18/18 15:19 Dose: 2 tab Pantoprazole Sodium (Protonix Iv) 40 mg IV Q24H [facility] Last Admin: 01/16/18 16:27 Dose: 40 mg Prednisone (Prednisone) 4 mg PO ONETIME ONE Stop: 01/17/18 08:01 Last Admin: 01/17/18 10:14 Dose: 4 mg Prednisone (Prednisone) 2.5 mg PO DAILY [facility] Last Admin: 01/19/18 09:50 Dose: 2.5 mg Propofol (Diprivan 20 Ml) Confirm Administered Dose 200 mg .ROUTE .STK-MED ONE Stop: 01/15/18 07:27 Rocuronium [place] (Zemuron) Confirm Administered Dose 50 mg .ROUTE .STK-MED ONE Stop: 01/15/18 07:27 Rocuronium [place] (Zemuron) Confirm Administered Dose 50 mg .ROUTE .STK-MED ONE Stop: 01/15/18 11:10 Scopolamine (Transderm-Scop) 1.5 mg TRDERM Q72H [facility] Stop: 01/17/18 09:00 Last Admin: 01/15/18 07:21 Dose: 1.5 mg Succinylcholine Chloride (Quelicin) Confirm Administered Dose 200 mg .ROUTE .STK -MED ONE Stop: 01/15/18 07:27 - Exam Quality Assessment: Supplemental Oxygen General: Alert, Cooperative, No Acute Distress HEENT: No: Mucous Membr. Moist/Kathleen (dry) Lungs: Normal Respiratory Effort, Crackles (few both bases), Wheezing (moderate expiratory) Cardiovascular: Regular Rate, Regular Rhythm GI/Abdominal Exam: Soft, No Distention Extremities: No Pedal Edema Skin: Warm, Dry Psy/Mental Status: Alert, Anxious (mild) Consult PN Assessment/Plan POD#: 5 Problem List Initiated/Reviewed/Updated: Yes My Orders Last 24 Hours: My Active Orders 01/19/18 16:20 Chest 1V Frontal [CR] Urgent 01/19/18 17:00 BIPAP Adult [RT BiPAP/CPAP] [RC] ASDIRECTED 01/19/18 17:01 Transfer Patient (Change bed) [ADT] Routine 01/19/18 17:11 Vital Signs [RC] Q2H 01/20/18 08:36 Acetaminophen/oxyCODONE [Percocet 325-10 MG] 1 tab PO Q4H PRN 01/20/18 08:45 methylPREDNISolone Sod Succ [Solu-MEDROL] 62.5 mg IVPUSH Q8H Plan: ASSESSMENT AND PLAN - Acute on chronic respiratory failure with hypoxia and hypercapnia - PCO2 initially improved but has risen back. PH is nearly normal at this time. I suspect probably a component of excess volume with likely cor pulmonale and possibly a component of COPD exacerbation. I don't see strong evidence for infection at this time. Patient feels and looks better this morning but still has some excess volume to be diuresed. She did receive a dose of furosemide earlier this morning. -continue noninvasive ventilation when sleeping and overnight -second dose of furosemide this afternoon -low-dose Solu-Medrol for a day or 2 before transitioning back to prednisone -Pulse oximetry Severe oxygen dependent COPD - she is wheezing today raising some concern for exacerbation of her COPD versuscardiac asthma with the excess fluid. -Steroids as above -Continue home management including nebulizers Incarcerated ventral hernia, status post surgical repair - pain control acceptable at this time and she is having bowel movements. -Postoperative cares per surgical team Patient will remain in the intensive care unit until respiratory status stabilizes further. Gonzalo Carrillo M.D.
[2018-01-20] MEDS: Montelukast 10 MG Tab PO SCH (08:38)
[2018-01-20] MEDS: ClonazePAM 1 MG Tab PO SCH ×2 (08:39→21:11)
[2018-01-20] MEDS: Loratadine 10 MG Tab PO SCH (08:40)
[2018-01-20] MEDS: Docusate Sodium 100 MG Cap PO SCH ×2 (08:40→21:11)
[2018-01-20] MEDS: Roflumilast 500 MCG Tab PO SCH (08:41)
[2018-01-20] MEDS: Fluticasone Propionate Nasal Spray 16 GM Bottle NASBOTH SCH (08:43)
[2018-01-20] MEDS: acetaZOLAMIDE 250 MG Tab PO SCH (08:43)
[2018-01-20] MEDS: Sodium Chloride 0.9% 10 ML Syringe FLUSH SCH (08:54)
[2018-01-20] MEDS: methylPREDNISolone Sodium Succinate 125 MG/2 ML SDV IVPUSH SCH ×2 (09:18→17:07)
[2018-01-20] MEDS: Pantoprazole 40 MG Delayed-Release Granules 1 Packet PO SCH (11:22)
--- NOTE | 2018-01-20 14:49 | CR ---
Single view chest Comparison: 15 January 2014. There is a left central venous catheter unchanged position. There are shallow lung volumes. There is basilar atelectasis. There are no focal infiltrates. There is mild vascular engorgement. Impression: 1. Mild CHF.
[2018-01-20] MEDS ORDERED: Furosemide 100 MG/10 ML SDV IVPUSH ONE (16:00)
--- NOTE | 2018-01-20 17:13 | PN ---
DATE OF SERVICE: 01/20/2018 The patient's T-max in a 100 range. Vital signs have been stable. She became little bit more confused. Yesterday was noted to have pCO2 in 70 range and was sent down to ICU and presently being managed in this regard per Dr. Carrillo, thinking that she may have some fluid overload. pCO2 is 70, her pH is 7.35, so she has converted her into compensated CO2 retainer type respiratory pattern. Otherwise, her bowels are moving well. We will discontinue the scheduled dulcolax. Continues to take in step-4 diet and we will maximize the activity and then work with Dr. Carrillo regarding the pulmonary and fluid issues. Richmond Russell MD /[id number]
--- NOTE | 2018-01-20 17:46 | PN ---
DATE OF SERVICE: 01/19/2018 The patient has been afebrile with stable vital signs. Otherwise, she is doing well; however, she has not had moved her bowels as of yet. We will continue the other bowel stimulation plus repeat magnesium citrate today. Otherwise, she is doing well from a respiratory standpoint. She will likely be . Richmond Russell MD /[id number]
[2018-01-20] MEDS: traZODone 50 MG Tab PO SCH (21:11)
[2018-01-20] MEDS: diphenhydrAMINE 25 MG Cap PO PRN (21:15)
[2018-01-21] MEDS: methylPREDNISolone Sodium Succinate 125 MG/2 ML SDV IVPUSH SCH ×3 (01:53→21:18)
[2018-01-21] MEDS: Sodium Chloride 0.9% 10 ML Syringe FLUSH SCH ×3 (01:54→15:27)
[2018-01-21] MEDS: Acetaminophen/oxyCODONE 325-10 MG Tab PO PRN ×5 (02:23→18:53)
[2018-01-21] MEDS: Azithromycin 250 MG Tab PO SCH (06:02)
[2018-01-21] MEDS: Albuterol/Ipratropium 3.0-0.5 MG/3 ML Neb Soln INH SCH ×4 (07:02→20:30)
[2018-01-21] MEDS: Budesonide 0.5 MG/2 ML Neb Susp INH SCH ×2 (07:02→20:30)
[2018-01-21] MEDS: Loratadine 10 MG Tab PO SCH (08:32)
[2018-01-21] MEDS: Docusate Sodium 100 MG Cap PO SCH ×2 (08:35→21:18)
[2018-01-21] MEDS: acetaZOLAMIDE 250 MG Tab PO SCH (08:36)
[2018-01-21] MEDS: Roflumilast 500 MCG Tab PO SCH (08:36)
[2018-01-21] MEDS: Fluticasone Propionate Nasal Spray 16 GM Bottle NASBOTH SCH (08:36)
[2018-01-21] MEDS: Theophylline 100 MG Cap.ER PO SCH (08:37)
[2018-01-21] MEDS: Montelukast 10 MG Tab PO SCH (08:37)
[2018-01-21] MEDS: buPROPion 150 MG Tab.ER PO SCH (08:38)
[2018-01-21] MEDS: ClonazePAM 1 MG Tab PO SCH ×2 (08:40→21:18)
--- NOTE | 2018-01-21 09:44 | PCM.CONSN ---
- General Info Date of Service: 01/21/18 Functional Status: Reports: Pain Controlled, Tolerating Diet - Review of Systems General: Reports: Weakness Pulmonary: Reports: Shortness of Breath Gastrointestinal: Reports: Abdominal Pain Systems Review Comment:: There were no acute events overnight. she had a better diuresis yesterday with an increased dose of furosemide. She still feels a little short of breath and has difficulty taking a deep breath but in general feels better today. PCO2 level remains elevated and is similar to yesterday. She has been using the noninvasive ventilation while she's been sleeping. Occasional wet sounding cough. She has not had any fevers. She does not have lower extremity edema. Abdominal pain is slowly improving. - Patient Data Vitals - Most Recent: Last Vital Signs Temp 36.6 C 01/21/18 08:00 Pulse 82 01/21/18 08:00 Resp 20 01/21/18 08:00 BP 104/38 L 01/21/18 08:00 Pulse Ox 92 L 01/21/18 08:00 Weight - Most Recent: 122.47 kg I&O - Last 24 Hours: Intake & Output 01/20/18 01/21/18 01/21/18 22:59 06:59 14:59 Intake Total 1380 120 Output Total 1250 1200 Balance 130 -1080 Lab Results Last 24 Hours: Laboratory Results - last 24 hr 01/21/18 01/21/18 01/21/18 Range/Units 04:20 04:20 04:20 WBC 4.6 (4.5-11.0) K/uL RBC 3.32 (3.30-5.50) M/uL Hgb 10.6 L (12.0-15.0) g/dL Hct 34.3 L (36.0-48.0) % MCV 103 H (80-98) fL MCH 32 H (27-31) pg MCHC 31 L (32-36) % Plt Count 299 (150-400) K/uL Puncture Site L radial ABG pH 7.350 (7.350-7.450) ABG pCO2 74.8 H* (35.0-42.0) mmHg ABG pO2 114.0 H (75.0-100.0) mmHg ABG HCO3 40.2 H (22.0-26.0) mmol/L ABG Total CO2 37.4 H (21.0-25.0) mmol/L ABG O2 Saturation 96.4 (95.0-98.0) % ABG O2 Content 14.4 L (15.0-23.0) %vol ABG Base Excess 12.4 mm/L ABG Hemoglobin 10.7 L (12.0-16.0) g/dL ABG Oxyhemoglobin 94.0 % ABG Carboxyhemoglobin 0.1 (0.0-1.6) % ABG Methemoglobin 2.4 % [place] Test Ok O2 Delivery Device Bipap Oxygen Flow Rate L Sodium 138 L (140-148) mmol/L Potassium 4.3 (3.6-5.2) mmol/L Chloride 97 L (100-108) mmol/L Carbon Dioxide 39 H (21-32) mmol/L Anion Gap 6.3 (5.0-14.0) mmol/L BUN 13 (7-18) mg/dL Creatinine 0.6 (0.6-1.0) mg/dL Est Cr Clr Drug Dosing 96.20 mL/min Estimated GFR (MDRD) > 60 (>60) Glucose 147 H (74-106) mg/dL Calcium 8.5 (8.5-10.1) mg/dL Phosphorus 2.4 L (2.5-4.9) mg/dL Magnesium 2.8 H (1.8-2.4) mg/dL Total Bilirubin 0.3 (0.2-1.0) mg/dL AST 14 L (15-37) U/L ALT 34 (12-78) U/L Alkaline Phosphatase 95 (46-116) U/L Total Protein 5.6 L (6.4-8.2) g/dL Albumin 2.7 L (3.4-5.0) g/dL Globulin 2.9 (2.3-3.5) g/dL Albumin/Globulin Ratio 0.9 L (1.2-2.2) Med Orders - Current: Current Medications Acetazolamide (Diamox) 250 mg PO DAILY [facility] Last Admin: 01/21/18 08:36 Dose: 250 mg Albuterol/Ipratropium (Duoneb 3.0-0.5 Mg/3 Ml) 3 ml INH QIDRT [facility] Last Admin: 01/21/18 07:02 Dose: 3 ml Albuterol/Ipratropium (Duoneb 3.0-0.5 Mg/3 Ml) 3 ml INH ASDIRECTED PRN PRN Reason: BREATHING Arformoterol Tartrate (Brovana) 15 mcg INH BID PRN PRN Reason: BREATHING Last Admin: 01/18/18 08:47 Dose: 15 mcg Azithromycin (Zithromax) 250 mg PO DAILY@0600 [facility] Last Admin: 01/21/18 06:02 Dose: 250 mg Budesonide (Pulmicort) 0.5 mg INH BIDRT [facility] Last Admin: 01/21/18 07:02 Dose: 0.5 mg Bupropion HCl (Wellbutrin Xl) 150 mg PO DAILY [facility] Last Admin: 01/21/18 08:38 Dose: 150 mg Clonazepam (Klonopin) 1 mg PO BID [facility] Last Admin: 01/21/18 08:40 Dose: 1 mg Diphenhydramine HCl (Benadryl) 50 mg PO Q4H PRN PRN Reason: Other Last Admin: 01/20/18 21:15 Dose: 50 mg Docusate Sodium (Colace) 100 mg PO BID [facility] Last Admin: 01/21/18 08:35 Dose: 100 mg Fluticasone Propionate (Flonase) 0 gm NASBOTH DAILY [facility] Last Admin: 01/21/18 08:36 Dose: 1 spray Heparin Sodium (Porcine) (Heparin Lock Flush 100 Units/Ml) 500 units FLUSH ASDIRECTED PRN 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 Last Admin: 01/21/18 01:55 Dose: 500 units Hydroxyzine HCl (Vistaril) 100 mg IM Q4H PRN PRN Reason: Pain Potassium Phosphate 30 mmole/ (Sodium Chloride) 160 mls @ 40 mls/hr IV ONETIME ONE Stop: 01/21/18 13:59 Loratadine (Claritin) 10 mg PO DAILY [facility] Last Admin: 01/21/18 08:32 Dose: 10 mg Methylprednisolone Sodium Succinate (Solu-Medrol) 62.5 mg IVPUSH Q8H [facility] Last Admin: 01/21/18 01:53 Dose: 62.5 mg Montelukast Sodium (Singulair) 10 mg PO DAILY [facility] Last Admin: 01/21/18 08:37 Dose: 10 mg Naloxone HCl (Narcan) 0.1 mg IV ASDIRECTED PRN PRN Reason: decreased respiratory rate Ondansetron HCl (Zofran) 4 mg IVPUSH Q4H PRN PRN Reason: NAUSEA Last Admin: 01/20/18 02:06 Dose: 4 mg Oxycodone/Acetaminophen (Percocet 325-10 Mg) 1 tab PO Q4H PRN PRN Reason: Pain Last Admin: 01/21/18 06:03 Dose: 1 tab Pantoprazole Sodium (Protonix Granules) 40 mg PO Q24H [facility] Last Admin: 01/20/18 11:22 Dose: 40 mg Roflumilast (Daliresp) 500 mcg PO DAILY [facility] Last Admin: 01/21/18 08:36 Dose: 500 mcg Sodium Chloride (Saline Flush) 10 ml FLUSH DAILY [facility] Last Admin: 01/21/18 08:40 Dose: 10 ml Theophylline (Timothy-24) 200 mg PO DAILY [facility] Last Admin: 01/21/18 08:37 Dose: 200 mg Trazodone HCl (Trazodone) 300 mg PO BEDTIME [facility] Last Admin: 01/20/18 21:11 Dose: 300 mg Discontinued Medications Acetaminophen (Tylenol Extra Strength) 1,000 mg PO ONETIME ONE Stop: 01/15/18 07:01 Last Admin: 01/15/18 07:21 Dose: 1,000 mg Albuterol/Ipratropium (Duoneb 3.0-0.5 Mg/3 Ml) 3 ml NEB ONETIME ONE Stop: 01/15/18 08:01 Last Admin: 01/15/18 08:12 Dose: 3 ml Azithromycin (Zithromax) 250 mg PO DAILY [facility] Last Admin: 01/17/18 08:25 Dose: 250 mg Bisacodyl (Dulcolax) 10 mg PO BID [facility] Last Admin: 01/17/18 08:25 Dose: 10 mg Bisacodyl (Dulcolax) 10 mg PO BID [facility] Last Admin: 01/19/18 20:34 Dose: 10 mg Bupivacaine HCl/Epinephrine Bitart (Marcaine 0.5%/Epinephrine 1:200,000) Confirm Administered Dose 50 ml .ROUTE .STK-MED ONE Stop: 01/15/18 06:40 Celecoxib (Celebrex) 200 mg PO ONETIME ONE Stop: 01/15/18 07:01 Last Admin: 01/15/18 07:21 Dose: 200 mg Ropivacaine 58 ml/Dexamethasone 8 mg/Epinephrine HCl 0.4 mg/ Sodium Chloride 19.6 ml 0 ml NERVRT ASDIRECTED [facility]TY[facility] Last Admin: 01/15/18 10:15 Dose: 80 syringe Dexamethasone (Dexamethasone) Confirm Administered Dose 4 mg .ROUTE .STK-MED ONE Stop: 01/15/18 07:27 Fentanyl (Sublimaze) Confirm Administered Dose 250 mcg .ROUTE .STK-MED ONE Stop: 01/15/18 07:27 Furosemide (Lasix) 40 mg PO DAILY [facility] Last Admin: 01/19/18 09:49 Dose: 40 mg Furosemide (Lasix) 40 mg IVPUSH ONETIME ONE Stop: 01/19/18 16:21 Last Admin: 01/19/18 16:28 Dose: 40 mg Furosemide (Lasix) 40 mg IVPUSH ONETIME ONE Stop: 01/20/18 06:15 Last Admin: 01/20/18 06:28 Dose: 40 mg Furosemide (Lasix) 60 mg IVPUSH ONETIME ONE Stop: 01/20/18 16:01 Last Admin: 01/20/18 16:55 Dose: 60 mg Gabapentin (Neurontin) 300 mg PO ONETIME ONE Stop: 01/15/18 07:01 Last Admin: 01/15/18 07:21 Dose: 300 mg Glycopyrrolate (Robinul) Confirm Administered Dose 1 mg .ROUTE .STK-MED ONE Stop: 01/15/18 07:27 Heparin Sodium (Porcine) (Heparin Lock Flush 100 Units/Ml) Confirm Administered Dose 500 units .ROUTE .STK-MED ONE Stop: 01/15/18 09:23 Heparin Sodium (Porcine) (Heparin Lock Flush 100 Units/Ml) Confirm Administered Dose 500 units .ROUTE .STK-MED ONE Stop: 01/17/18 08:43 Last Admin: 01/17/18 08:45 Dose: 500 units Hydrocortisone Sodium Succinate (Solu-Cortef) Confirm Administered Dose 100 mg .ROUTE .STK-MED ONE Stop: 01/15/18 10:07 Hydromorphone HCl (Dilaudid Rehabilitation Coordinator 15 Mg In Ns 30 Ml) 0 mg IV ASDIRECTED PRN; Protocol PRN Reason: Pain Last Admin: 01/16/18 12:39 Dose: 15 mg Hydroxyzine HCl (Vistaril) 100 mg IM ONETIME ONE Stop: 01/15/18 17:49 Last Admin: 01/15/18 18:02 Dose: 100 mg Cefoxitin Sodium 2 gm/ Sodium (Chloride) 50 mls @ 100 mls/hr IV ONETIME ONE Stop: 01/15/18 08:59 Last Admin: 01/15/18 09:42 Dose: 100 mls/hr Dextrose/Lactated Ringer's (Dextrose 5%-Lactated Ringers) 1,000 mls @ 100 mls/ hr IV ASDIRECTED [facility] Last Admin: 01/15/18 08:46 Dose: 100 mls/hr Ketamine HCl 100 mg/ Sodium (Chloride) 100 mls @ 17.4 mls/hr IV ASDIRECTED BETTYE Lidocaine HCl/Dextrose (Lidocaine 2 Gm/D5w 500 Ml) 2 gm in 500 mls @ 30 mls/hr IV .[id number] [facility] Stop: 01/16/18 12:00 Last Admin: 01/15/18 13:19 Dose: 2 mg/min, 30 mls/hr Linezolid (Zyvox) Confirm Administered Dose 300 mls @ as directed .ROUTE .STK- MED ONE Stop: 01/15/18 08:33 Lactated Ringer's (Ringers, Lactated) Confirm Administered Dose 1,000 mls @ as directed .ROUTE .STK-MED ONE Stop: 01/15/18 10:08 Dextrose/Lactated Ringer's (Dextrose 5%-Lactated Ringers) 1,000 mls @ 150 mls/ hr IV ASDIRECTED [facility] Last Admin: 01/17/18 00:42 Dose: 150 mls/hr Cefoxitin Sodium 2 gm/ Sodium (Chloride) 50 mls @ 100 mls/hr IV Q6H [facility] Stop: 01/16/18 04:29 Last Admin: 01/16/18 05:09 Dose: 100 mls/hr Dextrose/Lactated Ringer's (Dextrose 5%-Lactated Ringers) 1,000 mls @ 25 mls/ hr IV ASDIRECTED [facility] Ketamine HCl (Ketalar) 29 mg IV ASDIRECTED [facility] Lidocaine HCl (Xylocaine 2%) 120 mg IVPUSH ONETIME ONE Stop: 01/15/18 08:31 Last Admin: 01/15/18 13:46 Dose: Not Given Linezolid (Zyvox) 200 mg IRR .STK-MED ONE Stop: 01/15/18 10:51 Last Admin: 01/15/18 10:50 Dose: 200 mg Magnesium Citrate (Citrate Of Magnesia) 296 ml PO ONETIME ONE Stop: 01/18/18 18:14 Last Admin: 01/18/18 18:38 Dose: 296 ml Magnesium Citrate (Citrate Of Magnesia) 296 ml PO ONETIME ONE Stop: 01/19/18 09:31 Last Admin: 01/19/18 09:50 Dose: 296 ml Magnesium Citrate (Citrate Of Magnesia) 296 ml PO ONETIME ONE Stop: 01/19/18 16:01 Last Admin: 01/19/18 16:48 Dose: 296 ml Meperidine HCl (Demerol) 100 mg IM ONETIME ONE Stop: 01/15/18 17:48 Last Admin: 01/15/18 18:02 Dose: 100 mg Meropenem (Merrem) Confirm Administered Dose 500 mg .ROUTE .STK-MED ONE Stop: 01/15/18 06:40 Last Admin: 01/15/18 10:50 Dose: 500 mg Methylprednisolone Sodium Succinate (Solu-Medrol) 60 mg IVPUSH Q12H [facility] Stop: 01/16/18 06:01 Last Admin: 01/16/18 05:09 Dose: 60 mg Montelukast Sodium (Singulair) 10 mg PO BEDTIME [facility] Last Admin: 01/15/18 21:53 Dose: 10 mg Montelukast Sodium (Singulair) 10 mg PO DAILY [facility] Neostigmine Methylsulfate (Neostigmine) Confirm Administered Dose 5 mg .ROUTE .STK-MED ONE Stop: 01/15/18 07:27 Daliresp 500mg *Pom* (*Nf) 1 each PO DAILY [facility] Last Admin: 01/19/18 09:51 Dose: Not Given Ondansetron HCl (Zofran) Confirm Administered Dose 4 mg .ROUTE .STK-MED ONE Stop: 01/15/18 07:27 Oxycodone/Acetaminophen (Percocet 325-5 Mg) 1 - 2 tab PO Q4H PRN PRN Reason: Pain Last Admin: 01/18/18 15:19 Dose: 2 tab Oxycodone/Acetaminophen (Percocet 325-10 Mg) 1 - 2 tab PO Q4H PRN PRN Reason: Pain Last Admin: 01/20/18 02:06 Dose: 2 tab Pantoprazole Sodium (Protonix Iv) 40 mg IV Q24H [facility] Last Admin: 01/16/18 16:27 Dose: 40 mg Prednisone (Prednisone) 4 mg PO ONETIME ONE Stop: 01/17/18 08:01 Last Admin: 01/17/18 10:14 Dose: 4 mg Prednisone (Prednisone) 2.5 mg PO DAILY [facility] Last Admin: 01/19/18 09:50 Dose: 2.5 mg Propofol (Diprivan 20 Ml) Confirm Administered Dose 200 mg .ROUTE .STK-MED ONE Stop: 01/15/18 07:27 Rocuronium [place] (Zemuron) Confirm Administered Dose 50 mg .ROUTE .STK-MED ONE Stop: 01/15/18 07:27 Rocuronium [place] (Zemuron) Confirm Administered Dose 50 mg .ROUTE .STK-MED ONE Stop: 01/15/18 11:10 Scopolamine (Transderm-Scop) 1.5 mg TRDERM Q72H [facility] Stop: 01/17/18 09:00 Last Admin: 01/15/18 07:21 Dose: 1.5 mg Succinylcholine Chloride (Quelicin) Confirm Administered Dose 200 mg .ROUTE .STK -MED ONE Stop: 01/15/18 07:27 - Exam Quality Assessment: Supplemental Oxygen General: Alert, Oriented, Cooperative, No Acute Distress Neck: Supple Lungs: Normal Respiratory Effort, Crackles (few both lung bases) Cardiovascular: Regular Rate, Regular Rhythm GI/Abdominal Exam: Normal Bowel Sounds, Soft, No Distention Extremities: Pedal Edema Skin: Warm, Dry Psy/Mental Status: Alert, Normal Affect Consult PN Assessment/Plan Problem List Initiated/Reviewed/Updated: Yes My Orders Last 24 Hours: My Active Orders 01/21/18 10:00 Furosemide [Lasix] 60 mg IVPUSH Q6H methylPREDNISolone Sod Succ [Solu-MEDROL] 62.5 mg IVPUSH Q12H Plan: ASSESSMENT AND PLAN - Acute on chronic respiratory failure with hypoxia and hypercapnia - PCO2 remains elevated but is stable. PH is on the low side of normal and I suspect we are not too far from her baseline despite the significant elevation. She is feeling better after diuresis yesterday and still has some crackles suggesting we have some edema yet to resolve. Clinically she is improving. -continue noninvasive ventilation when sleeping and overnight (patient may use her own noninvasive ventilation unit) -furosemide 2 doses today -de-escalate Solu-Medrol dosing and plan to discontinue tomorrow -Pulse oximetry Severe oxygen dependent COPD - wheezing has resolved. Volume status improving but not yet optimized. -Steroids as above -Continue home management including nebulizers Incarcerated ventral hernia, status post surgical repair - pain control acceptable at this time and she is having bowel movements. -Postoperative cares per surgical team I would anticipate the patient will be ready for transfer out of the intensive care unit tomorrow and should be safe for discharge in the next couple of days. Gonzalo Carrillo M.D.
[2018-01-21] MEDS ORDERED: Potassium Phosphates 30 MMOLE in Sodium Chloride 0.9% 150 ML IV ONE ×4 (10:00)
[2018-01-21] MEDS: Furosemide 40 MG/4 ML VIAL IVPUSH SCH ×2 (10:19→15:25)
[2018-01-21] MEDS: Pantoprazole 40 MG Delayed-Release Granules 1 Packet PO SCH (10:55)
[2018-01-21] MEDS: diphenhydrAMINE 25 MG Cap PO PRN (21:18)
[2018-01-21] MEDS: traZODone 50 MG Tab PO SCH (21:18)
[2018-01-21] MEDS: Ondansetron 4 MG/2 ML SDV IVPUSH PRN (21:33)
[2018-01-22] MEDS: Acetaminophen/oxyCODONE 325-10 MG Tab PO PRN ×5 (02:54→20:34)
[2018-01-22] MEDS: Albuterol/Ipratropium 3.0-0.5 MG/3 ML Neb Soln INH PRN (02:58)
[2018-01-22] MEDS: Ondansetron 4 MG/2 ML SDV IVPUSH PRN ×4 (03:12→18:26)
[2018-01-22] MEDS: Azithromycin 250 MG Tab PO SCH (06:31)
[2018-01-22] MEDS: Budesonide 0.5 MG/2 ML Neb Susp INH SCH ×2 (07:16→21:43)
[2018-01-22] MEDS: Albuterol/Ipratropium 3.0-0.5 MG/3 ML Neb Soln INH SCH ×4 (07:16→21:43)
--- NOTE | 2018-01-22 08:09 | PN ---
DATE OF SERVICE: 01/21/2018 The patient has been afebrile with stable vital signs. She did diurese a fair bit yesterday and her blood gasses appear to be improving. She has moved into a CO2 retention pattern with pCO2 of 74, but her pH was 7.35, and oxygenation remains satisfactory. She has a cough that is somewhat productive, but she does not seem to be able to clear the secretions. We will continue the present pain management and otherwise continue the BiPAP when she is sleeping. Dr. Carrillo will get her medically maximized prior to discharge back to [facility]. Richmond Russell MD /[id number]
--- NOTE | 2018-01-22 08:27 | PN ---
DATE OF SERVICE: 01/22/2018 SUBJECTIVE: Toya is in ICU for acute on chronic respiratory failure with hypoxia. She had surgery on 01/15/2018. Oral intake was 1680. Urinary output 4700. She did have a large bowel movement yesterday. Temperature max in the past 24 hours was 99. She reports that her pain is an 8 to 10/10. She is getting Percocet 10/325 one every 4 hours. Up ambulating. Reports getting tired easily. REVIEW OF SYSTEMS: Remainder of review of systems negative for any pertinent positives and negatives. OBJECTIVE: GENERAL: Toya Holland is a 57-year-old female. VITAL SIGNS: TPR is 98.2, 78, 19. Blood pressure 83/50; two hours prior to that, it was 117/91. HEENT: Negative. NECK: Supple. HEART: Regular rate and rhythm. LUNGS: Revealed decreased breath sounds. ABDOMEN: Soft. Minimally tender. EXTREMITIES: Full range of motion. Trace edema. ASSESSMENT: 1. Acute on chronic respiratory failure with hypoxia. 2. Insertion of left subclavian vein triple-lumen catheter. 3. Exploratory laparotomy with;. a. Repair of incarcerated incisional hernia with mesh. b. Repair of focal areas of deserosalization of the small bowel x2 and placement of Vicryl mesh to displace pelvic and abdominal wall from underlining viscera to limit recurrent adhesion formation for inadequate venous access, incarcerated incisional hernia and focal areas of deserosalization of small bowel, status post lysis of adhesions. Date of surgery 01/15/2018. PLAN: 1. Continue same course of treatment in regard to surgery. 2. We will evaluate p.r.n. or in a.m. Gonzalo Carrillo MD, treating her respiratory diagnoses. Pippa Conn PA-C /[id number]
--- NOTE | 2018-01-22 08:37 | PCM.CONSN ---
- General Info Date of Service: 01/22/18 Functional Status: Reports: Pain Controlled, Tolerating Diet - Review of Systems General: Denies: Fever Pulmonary: Reports: Shortness of Breath Gastrointestinal: Reports: Abdominal Pain, Nausea Systems Review Comment:: there were no acute events overnight. Respiratory status has improved with excellent diuresis yesterday. She has been tolerating her noninvasive ventilation overnight. She has not had fevers. Still having some nausea and abdominal pain but these seem a little better. She is having bowel movements. - Patient Data Vitals - Most Recent: Last Vital Signs Temp 36 C 01/22/18 08:00 Pulse 81 01/22/18 08:00 Resp 24 H 01/22/18 08:00 BP 106/72 01/22/18 08:00 Pulse Ox 94 L 01/22/18 08:00 Weight - Most Recent: 121.245 kg I&O - Last 24 Hours: Intake & Output 01/21/18 01/22/18 01/22/18 22:59 06:59 14:59 Intake Total 480 600 Output Total 2200 2000 Balance -1720 -1400 Lab Results Last 24 Hours: Laboratory Results - last 24 hr 01/22/18 01/22/18 Range/Units 04:00 05:00 Puncture Site Rt brachial ABG pH 7.472 H (7.350-7.450) ABG pCO2 49.0 H (35.0-42.0) mmHg ABG pO2 107.0 H (75.0-100.0) mmHg ABG HCO3 35.4 H (22.0-26.0) mmol/L ABG Total CO2 32.1 H (21.0-25.0) mmol/L ABG O2 Saturation 96.7 (95.0-98.0) % ABG O2 Content 14.3 L (15.0-23.0) %vol ABG Base Excess 10.6 mm/L ABG Hemoglobin 10.8 L (12.0-16.0) g/dL ABG Oxyhemoglobin 93.2 % ABG Carboxyhemoglobin 1.4 (0.0-1.6) % ABG Methemoglobin 2.2 % Ephraim Test Passed O2 Delivery Device Bipap Sodium 137 L (140-148) mmol/L Potassium 4.2 (3.6-5.2) mmol/L Chloride 98 L (100-108) mmol/L Carbon Dioxide 34 H (21-32) mmol/L Anion Gap 9.2 (5.0-14.0) mmol/L BUN 14 (7-18) mg/dL Creatinine 0.6 (0.6-1.0) mg/dL Est Cr Clr Drug Dosing 96.20 mL/min Estimated GFR (MDRD) > 60 (>60) Glucose 151 H (74-106) mg/dL Calcium 8.3 L (8.5-10.1) mg/dL Phosphorus 2.6 (2.5-4.9) mg/dL Magnesium 2.5 H (1.8-2.4) mg/dL Total Bilirubin 0.2 (0.2-1.0) mg/dL AST 14 L (15-37) U/L ALT 32 (12-78) U/L Alkaline Phosphatase 87 (46-116) U/L NT-Pro-B Natriuret Pep 242 H (5-125) pg/mL Total Protein 5.6 L (6.4-8.2) g/dL Albumin 2.8 L (3.4-5.0) g/dL Globulin 2.8 (2.3-3.5) g/dL Albumin/Globulin Ratio 1.0 L (1.2-2.2) Med Orders - Current: Current Medications Acetazolamide (Diamox) 250 mg PO DAILY [facility] Last Admin: 01/21/18 08:36 Dose: 250 mg Albuterol/Ipratropium (Duoneb 3.0-0.5 Mg/3 Ml) 3 ml INH QIDRT [facility] Last Admin: 01/22/18 07:16 Dose: 3 ml Albuterol/Ipratropium (Duoneb 3.0-0.5 Mg/3 Ml) 3 ml INH ASDIRECTED PRN PRN Reason: BREATHING Last Admin: 01/22/18 02:58 Dose: 3 ml Arformoterol Tartrate (Brovana) 15 mcg INH BID PRN PRN Reason: BREATHING Last Admin: 01/18/18 08:47 Dose: 15 mcg Azithromycin (Zithromax) 250 mg PO DAILY@0600 [facility] Last Admin: 01/22/18 06:31 Dose: 250 mg Budesonide (Pulmicort) 0.5 mg INH BIDRT [facility] Last Admin: 01/22/18 07:16 Dose: 0.5 mg Bupropion HCl (Wellbutrin Xl) 150 mg PO DAILY [facility] Last Admin: 01/21/18 08:38 Dose: 150 mg Clonazepam (Klonopin) 1 mg PO BID [facility] Last Admin: 01/21/18 21:18 Dose: 1 mg Diphenhydramine HCl (Benadryl) 50 mg PO Q4H PRN PRN Reason: Other Last Admin: 01/21/18 21:18 Dose: 50 mg Docusate Sodium (Colace) 100 mg PO BID [facility] Last Admin: 01/21/18 21:18 Dose: 100 mg Fluticasone Propionate (Flonase) 0 gm NASBOTH DAILY [facility] Last Admin: 01/21/18 08:36 Dose: 1 spray Heparin Sodium (Porcine) (Heparin Lock Flush 100 Units/Ml) 500 units FLUSH ASDIRECTED PRN 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 Last Admin: 01/22/18 03:13 Dose: 500 units Hydroxyzine HCl (Vistaril) 100 mg IM Q4H PRN PRN Reason: Pain Loratadine (Claritin) 10 mg PO DAILY [facility] Last Admin: 01/21/18 08:32 Dose: 10 mg Montelukast Sodium (Singulair) 10 mg PO DAILY [facility] Last Admin: 01/21/18 08:37 Dose: 10 mg Naloxone HCl (Narcan) 0.1 mg IV ASDIRECTED PRN PRN Reason: decreased respiratory rate Ondansetron HCl (Zofran) 4 mg IVPUSH Q4H PRN PRN Reason: NAUSEA Last Admin: 01/22/18 08:22 Dose: 4 mg Oxycodone/Acetaminophen (Percocet 325-10 Mg) 1 tab PO Q4H PRN PRN Reason: Pain Last Admin: 01/22/18 07:54 Dose: 1 tab Pantoprazole Sodium (Protonix Granules) 40 mg PO Q24H [facility] Last Admin: 01/21/18 10:55 Dose: 40 mg Roflumilast (Daliresp) 500 mcg PO DAILY [facility] Last Admin: 01/21/18 08:36 Dose: 500 mcg Sodium Chloride (Saline Flush) 10 ml FLUSH DAILY [facility] Last Admin: 01/21/18 15:27 Dose: 10 ml Theophylline (Timothy-24) 200 mg PO DAILY [facility] Last Admin: 01/21/18 08:37 Dose: 200 mg Trazodone HCl (Trazodone) 300 mg PO BEDTIME [facility] Last Admin: 01/21/18 21:18 Dose: 300 mg Discontinued Medications Acetaminophen (Tylenol Extra Strength) 1,000 mg PO ONETIME ONE Stop: 01/15/18 07:01 Last Admin: 01/15/18 07:21 Dose: 1,000 mg Albuterol/Ipratropium (Duoneb 3.0-0.5 Mg/3 Ml) 3 ml NEB ONETIME ONE Stop: 01/15/18 08:01 Last Admin: 01/15/18 08:12 Dose: 3 ml Azithromycin (Zithromax) 250 mg PO DAILY [facility] Last Admin: 01/17/18 08:25 Dose: 250 mg Bisacodyl (Dulcolax) 10 mg PO BID [facility] Last Admin: 01/17/18 08:25 Dose: 10 mg Bisacodyl (Dulcolax) 10 mg PO BID [facility] Last Admin: 01/19/18 20:34 Dose: 10 mg Bupivacaine HCl/Epinephrine Bitart (Marcaine 0.5%/Epinephrine 1:200,000) Confirm Administered Dose 50 ml .ROUTE .STK-MED ONE Stop: 01/15/18 06:40 Celecoxib (Celebrex) 200 mg PO ONETIME ONE Stop: 01/15/18 07:01 Last Admin: 01/15/18 07:21 Dose: 200 mg Ropivacaine 58 ml/Dexamethasone 8 mg/Epinephrine HCl 0.4 mg/ Sodium Chloride 19.6 ml 0 ml NERVRT ASDIRECTED [facility] Last Admin: 01/15/18 10:15 Dose: 80 syringe Dexamethasone (Dexamethasone) Confirm Administered Dose 4 mg .ROUTE .STK-MED ONE Stop: 01/15/18 07:27 Fentanyl (Sublimaze) Confirm Administered Dose 250 mcg .ROUTE .STK-MED ONE Stop: 01/15/18 07:27 Furosemide (Lasix) 40 mg PO DAILY [facility] Last Admin: 01/19/18 09:49 Dose: 40 mg Furosemide (Lasix) 40 mg IVPUSH ONETIME ONE Stop: 01/19/18 16:21 Last Admin: 01/19/18 16:28 Dose: 40 mg Furosemide (Lasix) 40 mg IVPUSH ONETIME ONE Stop: 01/20/18 06:15 Last Admin: 01/20/18 06:28 Dose: 40 mg Furosemide (Lasix) 60 mg IVPUSH ONETIME ONE Stop: 01/20/18 16:01 Last Admin: 01/20/18 16:55 Dose: 60 mg Furosemide (Lasix) 60 mg IVPUSH Q6H [facility] Stop: 01/21/18 16:01 Last Admin: 01/21/18 15:25 Dose: 60 mg Gabapentin (Neurontin) 300 mg PO ONETIME ONE Stop: 01/15/18 07:01 Last Admin: 01/15/18 07:21 Dose: 300 mg Glycopyrrolate (Robinul) Confirm Administered Dose 1 mg .ROUTE .STK-MED ONE Stop: 01/15/18 07:27 Heparin Sodium (Porcine) (Heparin Lock Flush 100 Units/Ml) Confirm Administered Dose 500 units .ROUTE .STK-MED ONE Stop: 01/15/18 09:23 Heparin Sodium (Porcine) (Heparin Lock Flush 100 Units/Ml) Confirm Administered Dose 500 units .ROUTE .STK-MED ONE Stop: 01/17/18 08:43 Last Admin: 01/17/18 08:45 Dose: 500 units Hydrocortisone Sodium Succinate (Solu-Cortef) Confirm Administered Dose 100 mg .ROUTE .STK-MED ONE Stop: 01/15/18 10:07 Hydromorphone HCl (Dilaudid Layout Operator 15 Mg In Ns 30 Ml) 0 mg IV ASDIRECTED PRN; Protocol PRN Reason: Pain Last Admin: 01/16/18 12:39 Dose: 15 mg Hydroxyzine HCl (Vistaril) 100 mg IM ONETIME ONE Stop: 01/15/18 17:49 Last Admin: 01/15/18 18:02 Dose: 100 mg Cefoxitin Sodium 2 gm/ Sodium (Chloride) 50 mls @ 100 mls/hr IV ONETIME ONE Stop: 01/15/18 08:59 Last Admin: 01/15/18 09:42 Dose: 100 mls/hr Dextrose/Lactated Ringer's (Dextrose 5%-Lactated Ringers) 1,000 mls @ 100 mls/ hr IV ASDIRECTED [facility]TY[facility] Last Admin: 01/15/18 08:46 Dose: 100 mls/hr Ketamine HCl 100 mg/ Sodium (Chloride) 100 mls @ 17.4 mls/hr IV ASDIRECTED [facility] Lidocaine HCl/Dextrose (Lidocaine 2 Gm/D5w 500 Ml) 2 gm in 500 mls @ 30 mls/hr IV .[id number] [facility] Stop: 01/16/18 12:00 Last Admin: 01/15/18 13:19 Dose: 2 mg/min, 30 mls/hr Linezolid (Zyvox) Confirm Administered Dose 300 mls @ as directed .ROUTE .STK- MED ONE Stop: 01/15/18 08:33 Lactated Ringer's (Ringers, Lactated) Confirm Administered Dose 1,000 mls @ as directed .ROUTE .STK-MED ONE Stop: 01/15/18 10:08 Dextrose/Lactated Ringer's (Dextrose 5%-Lactated Ringers) 1,000 mls @ 150 mls/ hr IV ASDIRECTED [facility] Last Admin: 01/17/18 00:42 Dose: 150 mls/hr Cefoxitin Sodium 2 gm/ Sodium (Chloride) 50 mls @ 100 mls/hr IV Q6H [facility] Stop: 01/16/18 04:29 Last Admin: 01/16/18 05:09 Dose: 100 mls/hr Dextrose/Lactated Ringer's (Dextrose 5%-Lactated Ringers) 1,000 mls @ 25 mls/ hr IV ASDIRECTED [facility] Potassium Phosphate 30 mmole/ (Sodium Chloride) 160 mls @ 40 mls/hr IV ONETIME ONE Stop: 01/21/18 13:59 Potassium Phosphate 30 mmole/ (Sodium Chloride) 160 mls @ 40 mls/hr IV ONETIME ONE Stop: 01/21/18 13:59 Last Admin: 01/21/18 10:21 Dose: 40 mls/hr Ketamine HCl (Ketalar) 29 mg IV ASDIRECTED [facility] Lidocaine HCl (Xylocaine 2%) 120 mg IVPUSH ONETIME ONE Stop: 01/15/18 08:31 Last Admin: 01/15/18 13:46 Dose: Not Given Linezolid (Zyvox) 200 mg IRR .STK-MED ONE Stop: 01/15/18 10:51 Last Admin: 01/15/18 10:50 Dose: 200 mg Magnesium Citrate (Citrate Of Magnesia) 296 ml PO ONETIME ONE Stop: 01/18/18 18:14 Last Admin: 01/18/18 18:38 Dose: 296 ml Magnesium Citrate (Citrate Of Magnesia) 296 ml PO ONETIME ONE Stop: 01/19/18 09:31 Last Admin: 01/19/18 09:50 Dose: 296 ml Magnesium Citrate (Citrate Of Magnesia) 296 ml PO ONETIME ONE Stop: 01/19/18 16:01 Last Admin: 01/19/18 16:48 Dose: 296 ml Meperidine HCl (Demerol) 100 mg IM ONETIME ONE Stop: 01/15/18 17:48 Last Admin: 01/15/18 18:02 Dose: 100 mg Meropenem (Merrem) Confirm Administered Dose 500 mg .ROUTE .STK-MED ONE Stop: 01/15/18 06:40 Last Admin: 01/15/18 10:50 Dose: 500 mg Methylprednisolone Sodium Succinate (Solu-Medrol) 60 mg IVPUSH Q12H [facility] Stop: 01/16/18 06:01 Last Admin: 01/16/18 05:09 Dose: 60 mg Methylprednisolone Sodium Succinate (Solu-Medrol) 62.5 mg IVPUSH Q8H [facility] Last Admin: 01/21/18 01:53 Dose: 62.5 mg Methylprednisolone Sodium Succinate (Solu-Medrol) 62.5 mg IVPUSH Q12H [facility] Last Admin: 01/21/18 21:18 Dose: 62.5 mg Montelukast Sodium (Singulair) 10 mg PO BEDTIME [facility] Last Admin: 01/15/18 21:53 Dose: 10 mg Montelukast Sodium (Singulair) 10 mg PO DAILY [facility] Neostigmine Methylsulfate (Neostigmine) Confirm Administered Dose 5 mg .ROUTE .STK-MED ONE Stop: 01/15/18 07:27 Daliresp 500mg *Pom* (*Nf) 1 each PO DAILY [facility] Last Admin: 01/19/18 09:51 Dose: Not Given Ondansetron HCl (Zofran) Confirm Administered Dose 4 mg .ROUTE .STK-MED ONE Stop: 01/15/18 07:27 Oxycodone/Acetaminophen (Percocet 325-5 Mg) 1 - 2 tab PO Q4H PRN PRN Reason: Pain Last Admin: 01/18/18 15:19 Dose: 2 tab Oxycodone/Acetaminophen (Percocet 325-10 Mg) 1 - 2 tab PO Q4H PRN PRN Reason: Pain Last Admin: 01/20/18 02:06 Dose: 2 tab Pantoprazole Sodium (Protonix Iv) 40 mg IV Q24H [facility] Last Admin: 01/16/18 16:27 Dose: 40 mg Prednisone (Prednisone) 4 mg PO ONETIME ONE Stop: 01/17/18 08:01 Last Admin: 01/17/18 10:14 Dose: 4 mg Prednisone (Prednisone) 2.5 mg PO DAILY [facility] Last Admin: 01/19/18 09:50 Dose: 2.5 mg Propofol (Diprivan 20 Ml) Confirm Administered Dose 200 mg .ROUTE .STK-MED ONE Stop: 01/15/18 07:27 Rocuronium Hawley (Zemuron) Confirm Administered Dose 50 mg .ROUTE .STK-MED ONE Stop: 01/15/18 07:27 Rocuronium Hawley (Zemuron) Confirm Administered Dose 50 mg .ROUTE .STK-MED ONE Stop: 01/15/18 11:10 Scopolamine (Transderm-Scop) 1.5 mg TRDERM Q72H [facility] Stop: 01/17/18 09:00 Last Admin: 01/15/18 07:21 Dose: 1.5 mg Succinylcholine Chloride (Quelicin) Confirm Administered Dose 200 mg .ROUTE .STK -MED ONE Stop: 01/15/18 07:27 - Exam Quality Assessment: Supplemental Oxygen General: Alert, Oriented, Cooperative, No Acute Distress Lungs: Normal Respiratory Effort, Crackles (rare both bases) Cardiovascular: Regular Rate, Regular Rhythm GI/Abdominal Exam: Soft, No Distention Extremities: Pedal Edema (trace bilateral ankle edema) Psy/Mental Status: Alert, Normal Affect Consult PN Assessment/Plan Problem List Initiated/Reviewed/Updated: Yes My Orders Last 24 Hours: My Active Orders 01/22/18 08:33 Transfer Patient (Change bed) [ADT] Routine 01/22/18 08:45 predniSONE 20 mg PO BIDAC 01/22/18 09:00 Furosemide [Lasix] 40 mg IVPUSH ONETIME ONE Furosemide [Lasix] 40 mg PO DAILY 01/23/18 05:00 BASIC METABOLIC PANEL,BMP [CHEM] Timed CBC W/O DIFF,HEMOGRAM [HEME] Timed (1) Plan: ASSESSMENT AND PLAN - Acute on chronic respiratory failure with hypoxia and hypercapnia - PCO2 much better today and respiratory status has improved following diuresis yesterday. Seems to be back to baseline at this time. -continue noninvasive ventilation when sleeping and overnight (patient may use her own noninvasive ventilation unit) -furosemide 1 today and then restart usual oral diuresis tomorrow -transitioning to prednisone today, can be discontinued at the time of discharge -discontinue Pulse oximetry Severe oxygen dependent COPD - wheezing has resolved. Volume status has improved significantly. -Steroids as above -Continue home management including nebulizers Incarcerated ventral hernia, status post surgical repair - pain control acceptable at this time and she is having bowel movements. -Postoperative cares per surgical team The patient will be transferred out of the intensive care unit today and if nausea can be controlled I think she should be ready for discharge to home tomorrow. Gonzalo Carrillo M.D.
[2018-01-22] MEDS: predniSONE 20 MG Tab PO SCH ×2 (08:51→15:49)
[2018-01-22] MEDS: Docusate Sodium 100 MG Cap PO SCH ×2 (08:52→21:43)
[2018-01-22] MEDS: Loratadine 10 MG Tab PO SCH (08:52)
[2018-01-22] MEDS: Roflumilast 500 MCG Tab PO SCH (08:53)
[2018-01-22] MEDS: acetaZOLAMIDE 250 MG Tab PO SCH (08:53)
[2018-01-22] MEDS: Fluticasone Propionate Nasal Spray 16 GM Bottle NASBOTH SCH (08:54)
[2018-01-22] MEDS: Sodium Chloride 0.9% 10 ML Syringe FLUSH SCH (08:56)
[2018-01-22] MEDS: Theophylline 100 MG Cap.ER PO SCH (08:57)
[2018-01-22] MEDS: buPROPion 150 MG Tab.ER PO SCH (08:57)
[2018-01-22] MEDS: Montelukast 10 MG Tab PO SCH (08:58)
[2018-01-22] MEDS ORDERED: Furosemide 40 MG Tab PO SCH (09:00)
[2018-01-22] MEDS ORDERED: Furosemide 40 MG/4 ML VIAL IVPUSH ONE (09:00)
[2018-01-22] MEDS: ClonazePAM 1 MG Tab PO SCH ×2 (09:01→21:43)
[2018-01-22] MEDS: Pantoprazole 40 MG Delayed-Release Granules 1 Packet PO SCH (10:54)
[2018-01-22] MEDS: diphenhydrAMINE 25 MG Cap PO PRN (21:42)
[2018-01-22] MEDS: traZODone 50 MG Tab PO SCH (21:43)
[2018-01-23] MEDS: Acetaminophen/oxyCODONE 325-10 MG Tab PO PRN ×3 (01:06→11:36)
[2018-01-23] MEDS: Azithromycin 250 MG Tab PO SCH (05:46)
[2018-01-23] MEDS: predniSONE 20 MG Tab PO SCH (07:25)
[2018-01-23] MEDS: Ondansetron 4 MG/2 ML SDV IVPUSH PRN (07:26)
[2018-01-23] MEDS: Albuterol/Ipratropium 3.0-0.5 MG/3 ML Neb Soln INH PRN (07:28)
[2018-01-23] MEDS: Budesonide 0.5 MG/2 ML Neb Susp INH SCH (07:29)
[2018-01-23] MEDS: Albuterol/Ipratropium 3.0-0.5 MG/3 ML Neb Soln INH SCH ×2 (07:31→10:41)
[2018-01-23] MEDS ORDERED: Ondansetron 4 MG Tab.DIS PO PRN (07:44)
[2018-01-23] MEDS ORDERED: Furosemide 40 MG Tab PO SCH (09:00)
[2018-01-23] MEDS ORDERED: Cyanocobalamin (Vitamin B12) 1,000 MCG/ML SDV IM ONE (09:15)
--- NOTE | 2018-01-23 09:29 | DISCH ---
ADMISSION DIAGNOSES: Partial small bowel obstruction, ventral hernia, SP Barbara-en-Y gastric bypass surgery, unspecified surgical malabsorption, B12 deficiency, sleep apnea, morbid obesity, chronic obstructive pulmonary disease, oxygen dependent, and history of elevated liver function tests. DISCHARGE DIAGNOSES: 1. Insertion of left subclavian vein triple-lumen catheter. 2. Exploratory laparotomy with: a. Repair of incarcerated incisional hernia with mesh. b. Repair of focal areas of deserosalization of the small bowel x2. c. Placement of Vicryl mesh to displace small bowel and abdominal wall from underlying viscera to limit recurrent adhesive formation. 3. Inadequate peripheral venous access. 4. Incarcerated incisional hernia. 5. Focal area of deserosalization of small bowel status post lysis of adhesions. Date of surgery 01/15/2018. Surgeon, Richmond Russell MD. 6. Acute on chronic respiratory failure with hypoxia and hypercapnia. 7. Severe oxygen-dependent chronic obstructive pulmonary disease. HISTORY: Toya Holland is a 57-year-old female with a partial small bowel obstruction and ventral hernia. After preoperative evaluation and discussion of possible risks and possible complications, she wished to proceed with surgical procedure. HOSPITAL COURSE: Toya had her surgery on 01/15/2018. She had no operative complications. She was started on postoperative day 1 on a clear liquid diet. On postoperative day 2, she was advanced to a step-3 gastric bypass diet. She had bowel stimulation and prednisone was back to her basic 2.5 mg a day, and her standing order for Zithromax was ordered. On postoperative day 3, she had continuation of bowel stimulation and worked on pulmonary status. On postoperative day 4, she was given mag citrate and in the a.m. her lungs were clear. Breathing was good and later in the day, Gonzalo Carrillo MD Internal Medicine/Hospitalist saw her regarding lethargy and worsening hypoxia. She started having an increase in abdominal pain with coughing episodes. She had been using her BiPAP at night and was on oxygen as she was at home. She was transferred to ICU with acute on chronic respiratory failure with hypoxia and hypercapnia. Her pCO2 was 73. On 01/20/2018, she had a temperature max of 100 and her pCO2 was 70, pH 7.35 and she was converted into compensated CO2 retainer type respiratory pattern. Her bowel started to work and she was advanced to a step-4 diet. On 01/21/2018, she was afebrile. She did diurese. Bowels were working. The pain was managed and her breathing gradually improved. She was diuresed. Cough was less and she had less peripheral edema. On 01/22/2018, she was stable, transferred to second floor and was able to be discharged without any complications on 01/23/2018. PHYSICAL EXAMINATION: GENERAL: Toya Holland is a 57-year-old female. VITAL SIGNS: Height 5 feet 6 inches. Weight is 267 pounds. TPR 97.3, 75, 24 prior to that was 20. Blood pressure 106/54 and O2 is 94% on 4.5 L. HEENT: Negative. NECK: Supple. HEART: Regular rate and rhythm. LUNGS: Clear, but decreased breath sounds. ABDOMEN: Joanie intact. Abdominal binder has been on. EXTREMITIES: Revealed trace peripheral edema. DISPOSITION: Discharged to home. CONDITION: Stable and improving. FOLLOWUP APPOINTMENT: Pippa Conn PA-C, at [facility] on 01/28/2018 at 11:15 a.m. HOME MEDICATIONS: 1. Percocet 10/325 mg one tablet every 4 hours p.r.n. pain #40. 2. Colace 100 mg oral twice daily #100. 3. Zofran ODT 4 mg q.4 hours p.r.n. nausea. 4. Potassium chloride 20 mEq p.o. daily #30. 5. She is to resume her DuoNeb 1 inhalation 4 times a day. 6. Zithromax 250 oral daily. 7. Pulmicort 0.5 mg inhalation twice daily. 8. Robitussin A-C 1 teaspoon every 4 hours. 9. B12 of 1000 mcg mg IM every 30 days one was given on day of discharge. 10.Vitamin D2 of 2000 units daily. 11.Diflucan 150 mg oral every 7 days. 12.Flonase 2 inhalation daily. 13.Folic acid 1 mg daily. 14.Furosemide 40 mg oral daily. 15.Claritin 10 mg oral daily. 16.Singulair 10 mg oral daily. 17.Multivitamin 1 tablet daily. 18.Roflumilast (Daliresp) 500 mcg oral daily. 19.Theophylline 200 mg oral daily. 20.Umeclidinium Inhalation Powder one puff daily. 21.Acetazolamide 250 mg oral daily. 22.Bupropion 150 mg oral daily. 23.Klonopin 1 mg oral twice daily. 24.Benadryl 50 mg oral at bedtime. 25.Prednisone 2.5 mg oral daily. 26.Trazodone 300 mg at bedtime. DISCHARGE DIET: Diet after discharge: Usual diet as tolerated. Drink 8 to 10 glasses of water a day. ACTIVITY: No lifting over 10 pounds for 6 weeks. Other activity, walk 6 times daily, distance and time as tolerated. Do not drive while on pain medication. Shower/bathing, may shower. DISCHARGE INSTRUCTIONS: Notify provider if any fever, increased pain, swelling, redness, drainage, nausea, or vomiting. Keep site clean and dry. Wear abdominal binder for 6 weeks and then as tolerated. Use incentive spirometer 10 times every hour while awake.
[2018-01-23] MEDS: Docusate Sodium 100 MG Cap PO SCH (09:33)
[2018-01-23] MEDS: Loratadine 10 MG Tab PO SCH (09:33)
[2018-01-23] MEDS: acetaZOLAMIDE 250 MG Tab PO SCH (09:34)
[2018-01-23] MEDS: Fluticasone Propionate Nasal Spray 16 GM Bottle NASBOTH SCH (09:34)
[2018-01-23] MEDS: Roflumilast 500 MCG Tab PO SCH (09:34)
[2018-01-23] MEDS: Montelukast 10 MG Tab PO SCH (09:35)
[2018-01-23] MEDS: buPROPion 150 MG Tab.ER PO SCH (09:35)
[2018-01-23] MEDS: Theophylline 100 MG Cap.ER PO SCH (09:35)
[2018-01-23] MEDS: ClonazePAM 1 MG Tab PO SCH (09:47)
[2018-01-23] MEDS: Sodium Chloride 0.9% 10 ML Syringe FLUSH SCH (09:48)
[2018-01-23] MEDS: Pantoprazole 40 MG Delayed-Release Granules 1 Packet PO SCH (11:36)
== END 2018-01-23 12:20 | disposition home health service (06) | DRG 335 ==
LOC: JP.SDS 06:39 → JP.SDSSCHI 06:39 → EDSTATUS 09:15 → JP.2SS 12:01 → JP.ICU 01-19 17:01 → JP.MS 01-22 10:30
PROVIDERS: ADMIT Surgery; ATTEND Surgery
PROC: 0WUF0JZ Supplement Abdominal Wall with Synthetic Substitute, Open Approach (ICD-10-PCS; principal; 2018-01-15)
PROC: 0DNL0ZZ Release Transverse Colon, Open Approach (ICD-10-PCS; 2018-01-15)
PROC: 0DN80ZZ Release Small Intestine, Open Approach (ICD-10-PCS; 2018-01-15)
PROC: 3E0T3BZ Introduction of Anesthetic Agent into Peripheral Nerves and Plexi, Percutaneous Approach (ICD-10-PCS; 2018-01-15)
PROC: 02HV33Z Insertion of Infusion Device into Superior Vena Cava, Percutaneous Approach (ICD-10-PCS; 2018-01-15)
PROC: 3E0M05Z Introduction of Adhesion Barrier into Peritoneal Cavity, Open Approach (ICD-10-PCS; 2018-01-15)
DX: K43.0 Incisional hernia with obstruction, without gangrene (principal); J96.22 Acute and chronic respiratory failure with hypercapnia; J96.21 Acute and chronic respiratory failure with hypoxia; K56.51 Intestinal adhesions [bands], with partial obstruction; K91.2 Postsurgical malabsorption, not elsewhere classified; E53.8 Deficiency of other specified B group vitamins; J44.9 Chronic obstructive pulmonary disease, unspecified; Z87.891 Personal history of nicotine dependence; Z99.81 Dependence on supplemental oxygen; Z98.84 Bariatric surgery status; Z98.0 Intestinal bypass and anastomosis status; Z86.14 Personal history of Methicillin resistant Staphylococcus aureus infection; F43.10 Post-traumatic stress disorder, unspecified; F41.9 Anxiety disorder, unspecified; F32.9 Major depressive disorder, single episode, unspecified; M19.90 Unspecified osteoarthritis, unspecified site; G47.30 Sleep apnea, unspecified; Z87.01 Personal history of pneumonia (recurrent); Z87.440 Personal history of urinary (tract) infections; Z88.5 Allergy status to narcotic agent; Z79.52 Long term (current) use of systemic steroids; Z96.659 Presence of unspecified artificial knee joint
CPT/HCPCS: 36415; 36600; 71045; 71045-26; 80048; 80053; 82803; 83735; 83880; 84100; 85027; 88302; 94640; 94660; 94762; A9270-GY; C1781; C9113; J0171; J0330; J0694; J1100; J1170; J1642; J1720; J1940; J2001; J2020; J2175; J2185; J2405; J2704; J2710; J2795; J2930; J3010; J3410; J3490; J7030; J7042; J7050; J7120; J7605; J7620-GY